=== PATIENT | female | born 1995 | race African-American/Black ===

== ENCOUNTER 2017-10-14 11:50 | Emergency (ER) | payer MEDICAID ==
[~2017-10-14 11:50] MED LIST: PREN0.01 PO
[2017-10-14 11:51] VITALS: BP 144/74; PULSE 88; RESP 14; TEMP 98.6; O2SAT 100
--- NOTE | 2017-10-14 12:15 | PD ---
HPI Chief Complaint: Related Problem Time Seen by Provider: 11:58 Travel History International Travel<30 days: No Contact w/Intl Traveler<30days: No Traveled to known affect area: No History of Present Illness HPI 22-year-old female G1 at 10 weeks presents to emergency room complaining of abdominal cramping since last night. Patient states that her cramping as described as intermittent aching that initially started in the upper abdomen area migrated to the lower pelvic region. Patient does not correlate her pain to food or activity. Pain does not radiate, described as mild and no palliative or provocative factors. Patient states he she has been nauseous since beginning of her but has well-controlled now. Denies vomiting or diarrhea. Denies vaginal discharge or bleeding. Denies dysuria. Denies history of surgeries abdominal or otherwise. States she takes vitamins regularly but no other medications. Patient denies chronic medical issues. Patient has not received an ultrasound from her research librarian. She saw her research librarian last Monday. Patient has unable to tell me the name of her research librarian. PFS Past Medical History Asthma: Yes Developmental Delay: No Diminished Hearing: No Respiratory: Yes (ASTHMA) Immunizations Current: Yes Migraines: Yes ?: Social History Alcohol Use: No Tobacco Use: No Substance Use: No Allergies-Medications (Allergen,Severity, Reaction): Coded Allergies: No Known Allergies (Verified Adverse Reaction, Unknown, 10/10/17) Reported Meds & Prescriptions Reported Meds & Active Scripts Active Plus 27-1 mg ( Vit W/ Ferrous Fumara) 27 Mg Iron-1 Mg Tab 1 Tab PO DAILY Review of Systems Except as stated in HPI: all other systems reviewed are Neg Physical Exam Narrative GENERAL: Well-developed well-nourished in no apparent distress sitting comfortably in bed SKIN: Focused skin assessment warm/dry. HEAD: Atraumatic. Normocephalic. EYES: Pupils equal and round. No scleral icterus. No injection or drainage. ENT: No nasal bleeding or discharge. Mucous membranes pink and moist. NECK: Trachea midline. No JVD. No lymphadenopathy CARDIOVASCULAR: Regular rate and rhythm. No murmur appreciated. RESPIRATORY: No accessory muscle use. Clear to auscultation. Breath sounds equal bilaterally. GASTROINTESTINAL: Abdomen soft, TTP to pelvic region without masses, scars. GENITOURINARY: Normal external genitalia without lesions or erythema. Vaginal vault without blood. White patches present Cervical os was closed without drainage. No cervical motion tenderness. Uterus nontender and nonenlarged. Bilateral adnexa nontender without masses. MUSCULOSKELETAL: No obvious deformities. No clubbing. No cyanosis. No edema. NEUROLOGICAL: Awake and alert. No obvious cranial nerve deficits. Motor grossly within normal limits. Normal speech. PSYCHIATRIC: Appropriate mood and affect; insight and judgment normal. Data Data Last Documented VS Vital Signs Date Time Temp Pulse Resp B/P (MAP) Pulse Ox O2 Delivery O2 Flow Rate FiO2 10/14/17 14:51 10/14/17 12:22 16 10/14/17 11:51 98.6 88 100 Orders Orders Beta Hcg (Quant/Titer) (10/14/17 12:08) Complete Blood Count With Diff (10/14/17 12:08) Comprehensive Metabolic Panel (10/14/17 12:08) Gc And Chlamydia Pcr (10/14/17 12:08) Wet Prep Profile (10/14/17 12:08) Urinalysis - C+S If Indicated (10/14/17 12:08) Iv Access Insert/Monitor (10/14/17 12:08) Ecg Monitoring (10/14/17 12:08) Ed Urine Pregnancytest Poc (10/14/17 12:08) Ed Poc Ultrasound (10/14/17 12:08) Complete Rh (10/14/17 12:39) Ed Discharge Order (10/14/17 14:22) Labs Laboratory Tests Test 10/14/17 12:15 10/14/17 12:30 White Blood Count 11.4 TH/MM3 Red Blood Count 4.57 MIL/MM3 Hemoglobin 12.9 GM/DL Hematocrit 38.3 % Mean Corpuscular Volume 83.9 FL Mean Corpuscular Hemoglobin 28.1 PG Mean Corpuscular Hemoglobin Concent 33.6 % Red Cell Distribution Width 13.6 % Platelet Count 369 TH/MM3 Mean Platelet Volume 8.2 FL Neutrophils (%) (Auto) 69.0 % Lymphocytes (%) (Auto) 22.7 % Monocytes (%) (Auto) 6.8 % Eosinophils (%) (Auto) 1.0 % Basophils (%) (Auto) 0.5 % Neutrophils # (Auto) 7.8 TH/MM3 Lymphocytes # (Auto) 2.6 TH/MM3 Monocytes # (Auto) 0.8 TH/MM3 Eosinophils # (Auto) 0.1 TH/MM3 Basophils # (Auto) 0.1 TH/MM3 CBC Comment DIFF FINAL Differential Comment Urine Color YELLOW Urine Turbidity HAZY Urine pH 8.0 Urine Specific [place] 1.012 Urine Protein NEG mg/dL Urine Glucose (UA) NEG mg/dL Urine Ketones NEG mg/dL Urine Occult Blood NEG Urine Nitrite NEG Urine Bilirubin NEG Urine Urobilinogen LESS THAN 2.0 MG/DL Urine Leukocyte Esterase MOD Urine RBC 1 /hpf Urine WBC 4 /hpf Urine Squamous Epithelial Cells 6 /hpf Urine Amorphous Sediment RARE Urine Mucus FEW /lpf Microscopic Urinalysis Comment CULT NOT INDICATED Blood Urea Nitrogen 3 MG/DL Creatinine 0.49 MG/DL Random Glucose 78 MG/DL Total Protein 8.0 GM/DL Albumin 3.8 GM/DL Calcium Level 9.1 MG/DL Alkaline Phosphatase 63 U/L Aspartate Amino Transf (AST/SGOT) 18 U/L Alanine Aminotransferase (ALT/SGPT) 13 U/L Total Bilirubin 0.6 MG/DL Sodium Level 137 MEQ/L Potassium Level 3.9 MEQ/L Chloride Level 106 MEQ/L Carbon Dioxide Level 24.5 MEQ/L Anion Gap 7 MEQ/L Estimat Glomerular Filtration Rate 195 ML/MIN Human Chorionic Gonadotropin, Quant 09747 MIU/ML Clue Cells (Wet Prep) NONE SEEN Vaginal Trichomonas (Wet Prep) NONE SEEN Vaginal Yeast (Wet Prep) NONE SEEN MDM Medical Decision Making Medical Screen Exam Complete: Yes Emergency Medical Condition: Yes Differential Diagnosis Urethritis, cystitis, urinary tract infection,ectopic , IUP Narrative Course 22-year-old female G1 at 10 weeks presents to emergency room complaining of abdominal cramping since last night. Patient states that her cramping as described as intermittent aching that initially started in the upper abdomen area migrated to the lower pelvic region. Patient does not correlate her pain to food or activity. Pain does not radiate, described as mild and no palliative or provocative factors. Patient states he she has been nauseous since beginning of her but has well-controlled now. Denies vomiting or diarrhea. Denies vaginal discharge or bleeding. Denies dysuria. Denies history of surgeries abdominal or otherwise. States she takes vitamins regularly but no other medications. Patient denies chronic medical issues. Patient has not received an ultrasound from her research librarian. She saw her research librarian last Monday. Patient has unable to tell me the name of her research librarian. Vital signs stable. Physical exam: Vaginal exam demonstrates cervical loss closed without drainage or bleeding. White patches throughout the vaginal loyd. No cervical motion tenderness. [id number] ultrasound performed by Dr. Vasquez. Please see his note as well. After review of EMR, patient seen by Dr. Davis Monday where she had a pelvic exam in multiple levels drawn. Patient does due to have an ultrasound in exam October 19 along with initial checkup. In addition, patient was diagnosed with urinary tract infection August 2017 and prematurely stop this medication after her physician advised her to. Patient denies dysuria or hematuria currently. HCG quant level correlates to gestational age of approximately 8-9 weeks. No evidence of urinary tract infection. Patient likely has pelvic cramping secondary to status, patient has an IUP confirmed on point of care ultrasound today. Pt understands the likely diagnosis and advised to return for increased cramping , vaginal bleeding. Please see Dr. Vasquez's not as well regarding this patient. Diagnosis Primary Impression: Pelvic pain during Referrals: Resource Management Planner Additional Instructions: You may his Tylenol for your pelvic cramping. Ensure you are drinking plenty of fluids, preferably water, along with a nutritious diet. If you develop fever, chills, severe abdominal pain, persistent vomiting or inability to eat return to the emergency department. Your pelvic exam today did not include a Pap smear. Follow up with your research librarian as discussed today. Disposition: 01 DISCHARGE HOME Condition: Stable Mariana Chen Oct 14, 2017 12:15
--- NOTE | 2017-10-14 12:34 | PD ---
Physical Exam Date Seen by Provider: Oct 14, 2017 Time Seen by Provider: 12:32 Narrative The patient is a 22-year-old Josee female who is a who estimates her last menstrual cycle mid July, approximately 10 weeks . The patient was initially seen by the mid-level provider, please refer to the initial history, physical, diagnostic evaluation, treatment modality plan. Data Data Last Documented VS Vital Signs Date Time Temp Pulse Resp B/P (MAP) Pulse Ox O2 Delivery O2 Flow Rate FiO2 10/14/17 12:22 16 10/14/17 11:51 98.6 88 144/74 (97) 100 Orders Orders Beta Hcg (Quant/Titer) (10/14/17 12:08) Complete Blood Count With Diff (10/14/17 12:08) Comprehensive Metabolic Panel (10/14/17 12:08) Gc And Chlamydia Pcr (10/14/17 12:08) Wet Prep Profile (10/14/17 12:08) Urinalysis - C+S If Indicated (10/14/17 12:08) Iv Access Insert/Monitor (10/14/17 12:08) Ecg Monitoring (10/14/17 12:08) Ed Urine Pregnancytest Poc (10/14/17 12:08) Ed Poc Ultrasound (10/14/17 12:08) Complete Rh (10/14/17 12:39) Ed Discharge Order (10/14/17 14:22) Labs Laboratory Tests Test 10/14/17 12:15 10/14/17 12:30 White Blood Count 11.4 TH/MM3 Red Blood Count 4.57 MIL/MM3 Hemoglobin 12.9 GM/DL Hematocrit 38.3 % Mean Corpuscular Volume 83.9 FL Mean Corpuscular Hemoglobin 28.1 PG Mean Corpuscular Hemoglobin Concent 33.6 % Red Cell Distribution Width 13.6 % Platelet Count 369 TH/MM3 Mean Platelet Volume 8.2 FL Neutrophils (%) (Auto) 69.0 % Lymphocytes (%) (Auto) 22.7 % Monocytes (%) (Auto) 6.8 % Eosinophils (%) (Auto) 1.0 % Basophils (%) (Auto) 0.5 % Neutrophils # (Auto) 7.8 TH/MM3 Lymphocytes # (Auto) 2.6 TH/MM3 Monocytes # (Auto) 0.8 TH/MM3 Eosinophils # (Auto) 0.1 TH/MM3 Basophils # (Auto) 0.1 TH/MM3 CBC Comment DIFF FINAL Differential Comment Urine Color YELLOW Urine Turbidity HAZY Urine pH 8.0 Urine Specific [place] 1.012 Urine Protein NEG mg/dL Urine Glucose (UA) NEG mg/dL Urine Ketones NEG mg/dL Urine Occult Blood NEG Urine Nitrite NEG Urine Bilirubin NEG Urine Urobilinogen LESS THAN 2.0 MG/DL Urine Leukocyte Esterase MOD Urine RBC 1 /hpf Urine WBC 4 /hpf Urine Squamous Epithelial Cells 6 /hpf Urine Amorphous Sediment RARE Urine Mucus FEW /lpf Microscopic Urinalysis Comment CULT NOT INDICATED Blood Urea Nitrogen 3 MG/DL Creatinine 0.49 MG/DL Random Glucose 78 MG/DL Total Protein 8.0 GM/DL Albumin 3.8 GM/DL Calcium Level 9.1 MG/DL Alkaline Phosphatase 63 U/L Aspartate Amino Transf (AST/SGOT) 18 U/L Alanine Aminotransferase (ALT/SGPT) 13 U/L Total Bilirubin 0.6 MG/DL Sodium Level 137 MEQ/L Potassium Level 3.9 MEQ/L Chloride Level 106 MEQ/L Carbon Dioxide Level 24.5 MEQ/L Anion Gap 7 MEQ/L Estimat Glomerular Filtration Rate 195 ML/MIN Human Chorionic Gonadotropin, Quant 66807 MIU/ML Clue Cells (Wet Prep) NONE SEEN Vaginal Trichomonas (Wet Prep) NONE SEEN Vaginal Yeast (Wet Prep) NONE SEEN MDM Medical Record Reviewed: Yes Supervised Visit with LAURE: Yes Interpretation(s) Laboratory Tests Test 10/14/17 12:15 10/14/17 12:30 White Blood Count 11.4 TH/MM3 Red Blood Count 4.57 MIL/MM3 Hemoglobin 12.9 GM/DL Hematocrit 38.3 % Mean Corpuscular Volume 83.9 FL Mean Corpuscular Hemoglobin 28.1 PG Mean Corpuscular Hemoglobin Concent 33.6 % Red Cell Distribution Width 13.6 % Platelet Count 369 TH/MM3 Mean Platelet Volume 8.2 FL Neutrophils (%) (Auto) 69.0 % Lymphocytes (%) (Auto) 22.7 % Monocytes (%) (Auto) 6.8 % Eosinophils (%) (Auto) 1.0 % Basophils (%) (Auto) 0.5 % Neutrophils # (Auto) 7.8 TH/MM3 Lymphocytes # (Auto) 2.6 TH/MM3 Monocytes # (Auto) 0.8 TH/MM3 Eosinophils # (Auto) 0.1 TH/MM3 Basophils # (Auto) 0.1 TH/MM3 CBC Comment DIFF FINAL Differential Comment Urine Color YELLOW Urine Turbidity HAZY Urine pH 8.0 Urine Specific [place] 1.012 Urine Protein NEG mg/dL Urine Glucose (UA) NEG mg/dL Urine Ketones NEG mg/dL Urine Occult Blood NEG Urine Nitrite NEG Urine Bilirubin NEG Urine Urobilinogen LESS THAN 2.0 MG/DL Urine Leukocyte Esterase MOD Urine RBC 1 /hpf Urine WBC 4 /hpf Urine Squamous Epithelial Cells 6 /hpf Urine Amorphous Sediment RARE Urine Mucus FEW /lpf Microscopic Urinalysis Comment CULT NOT INDICATED Blood Urea Nitrogen 3 MG/DL Creatinine 0.49 MG/DL Random Glucose 78 MG/DL Total Protein 8.0 GM/DL Albumin 3.8 GM/DL Calcium Level 9.1 MG/DL Alkaline Phosphatase 63 U/L Aspartate Amino Transf (AST/SGOT) 18 U/L Alanine Aminotransferase (ALT/SGPT) 13 U/L Total Bilirubin 0.6 MG/DL Sodium Level 137 MEQ/L Potassium Level 3.9 MEQ/L Chloride Level 106 MEQ/L Carbon Dioxide Level 24.5 MEQ/L Anion Gap 7 MEQ/L Estimat Glomerular Filtration Rate 195 ML/MIN Human Chorionic Gonadotropin, Quant 04524 MIU/ML Clue Cells (Wet Prep) NONE SEEN Vaginal Trichomonas (Wet Prep) NONE SEEN Vaginal Yeast (Wet Prep) NONE SEEN Differential Diagnosis Differential diagnosis includes normal , ectopic , threatened AB, hyperemesis gravidarum, GERD, UTI, dehydration. Narrative Course I, Dr. Vasquez, have reviewed the advance practice practitioner's documentation and am in agreement, met with the patient face to face, made the diagnosis, and the medical decision making was done by me. *My assessment and Findings: The patient is a 22-year-old after [place] female was initially evaluated by the mid-level provider, please refer to the initial history, physical, diagnostic evaluation, and treatment modality plan. Patient is who estimates her last menstrual cycle mid-July, thinks she is approximately 10 weeks . She has a follow-up appointment for official ultrasound on September 29, 2017 at [facility]. The patient states she had mild epigastric discomfort that radiated down low to the pelvis with cramping. She denies any vaginal bleeding, dysuria, discharge, vomiting, diarrhea, or fever. A bedside ultrasound was performed, revealing an IUP with positive heart tones. The patient was shown the ultrasound as it was performed at bedside. Wet prep negative. UA negative. Rh status positive, no indication for RhoGAM. Patient is stable for outpatient follow-up with her collections rep. Procedures Procedure Narrative A bedside ultrasound was performed using a curvilinear probe. The patient had an IUP with positive heart tones, the patient tolerated the procedure without difficulty and there was no obvious complications. Diagnosis Primary Impression: Qualified Codes: Z34.90 - Encounter for supervision of normal , unspecified, unspecified trimester Patient Instructions: General Instructions Additional Instruction: Please provide the patient copy of her labs at discharge. Follow-up with her primary physician. Continue taking a vitamin daily. Return if symptoms worsen or progress. Disposition: 01 DISCHARGE HOME Condition: Stable Antelmo Vasquez MD Oct 14, 2017 12:34
[2017-10-14 12:35] LABS: AUTOMATED NEUTROPHIL # 7.8 TH/MM3 (1.8-7.7); BASOPHIL # 0.1 TH/MM3 (0-0.2); BASOPHIL % 0.5 % (0.0-2.0); EOSINOPHIL # 0.1 TH/MM3 (0-0.4); HEMATOCRIT 38.3 % (35.0-46.0); HEMOGLOBIN 12.9 GM/DL (11.6-15.3); LYMPH % 22.7 % (9.0-44.0); LYMPHOCYTE # 2.6 TH/MM3 (1.0-4.8); MEAN CELL VOLUME 83.9 FL (80.0-100.0); MEAN CORPUSCULAR HEMOGLOBIN 28.1 PG (27.0-34.0); MEAN CORPUSCULAR HGB CONC 33.6 % (32.0-36.0); MEAN PLATELET VOLUME 8.2 FL (7.0-11.0); MONO % 6.8 % (0.0-8.0); MONOCYTE # 0.8 TH/MM3 (0-0.9); PLATELET COUNT 369 TH/MM3 (150-450); RED BLOOD COUNT 4.57 MIL/MM3 (4.00-5.30); RED CELL DISTRIBUTION WIDTH 13.6 % (11.6-17.2); WHITE BLOOD COUNT 11.4 TH/MM3 (4.0-11.0)
[2017-10-14 12:47] LABS: AMORPHOUS SEDIMENT, URINE RARE; BILIRUBIN, URINE NEG (NEG); BLOOD, URINE NEG (NEG); GLUCOSE,URINE NEG (NEG); KETONE, URINE NEG (NEG); MUCUS URINE FEW /lpf (OCC); NITRITE,URINE NEG (NEG); SQUAMOUS EPITHELIAL CELL URINE 6 /hpf (0-5); URINE COLOR YELLOW (YELLW/STRAW); URINE LEUKOCYTE ESTERASE MOD (NEG)
[2017-10-14 13:21] LABS: ALKALINE PHOSPHATASE 63 U/L (45-117); ALT (GPT) 13 U/L (9-42); TOTAL BILIRUBIN ADULT 0.6 MG/DL (0.2-1.0)
[2017-10-14 13:37] LABS: ALBUMIN 3.8 GM/DL (3.4-5.0); AST (GOT) 18 U/L (16-38); BICARBONATE 24.5 MEQ/L (21.0-32.0); BLOOD UREA NITROGEN 3 MG/DL (7-18); CALCIUM 9.1 MG/DL (8.5-10.1); CHLORIDE 106 MEQ/L (98-107); CREATININE 0.49 MG/DL (0.50-1.00); GLOMERULAR FILTRATION RATE 195 ML/MIN (>89); GLUCOSE,RANDOM 78 MG/DL (74-106); SODIUM (NA) 137 MEQ/L (136-145)
== END 2017-10-14 14:52 | disposition home or self-care (01) ==
LOC: NEPC 11:50
DX: O26.891 Other specified pregnancy related conditions, first trimester (principal); R10.2 Pelvic and perineal pain; O99.511 Diseases of the respiratory system complicating pregnancy, first trimester; J45.909 Unspecified asthma, uncomplicated; Z3A.10 10 weeks gestation of pregnancy
CPT/HCPCS: 80053; 81001; 84702; 84703; 85025; 86901; 87210; 87491; 87591; 99283

== ENCOUNTER → 2017-10-19 | Outpatient (CLI) | payer MEDICAID | LOC: HPND 08:59 | PROVIDERS: ATTEND Family Medicine | DX: O26.841 Uterine size-date discrepancy, first trimester (principal) | CPT/HCPCS: 76801 ==

== ENCOUNTER → 2017-11-28 | Outpatient (CLI) | payer MEDICAID | LOC: HPND 09:23 | PROVIDERS: ATTEND Family Medicine | DX: Z36.3 Encounter for antenatal screening for malformations (principal) | CPT/HCPCS: 76805 ==

== ENCOUNTER → 2017-12-26 | Outpatient (CLI) | payer MEDICAID | LOC: HPND 10:07 | PROVIDERS: ATTEND Family Medicine | DX: Z36.2 Encounter for other antenatal screening follow-up (principal) | CPT/HCPCS: 76816 ==

== ENCOUNTER 2018-01-16 07:21 | Emergency (ER) | payer MEDICAID ==
--- NOTE | 2018-01-16 08:07 | PD ---
HPI Chief Complaint Abdominal pain Date Seen: Jan 16, 2018 Time Seen: 08:00 Travel History International Travel<30 Days: No Contact w/Intl Traveler<30Days: No Known Affected Area: No History of Present Illness HPI The patient is a very pleasant 22 year old at 25/5 weeks gestation who presents to OB triage for evaluation of left lateral abdominal wall pain. She states last night she started to have stabbing pain of this area around 22:00. She endorses decreased movement at that time as well. She was able to fall asleep however states she woke up around 03:00 this morning with the same stabbing pain. She reports her pain currently is at a 9/10. She now reports normal movements. Denies contractions. Denies vaginal bleeding, discharge , or leakage of fluid. She denies dysuria or hematuria, recent sexual intercourse, fevers or chills. Para: 0 : 1 History Past Medical History Narrative Medical - Asthma, mild, never hospitalized - Denies having sickle cell trait or disease Obstetric History Obstetric History - - First day of LMP: 08/14/2017 - Confirms no previous elective or spontaneous abortions, no ectopic pregnancies - No history of gonorrhea, chlamydia, or PID - Reports 2 previous UTIs lifetime, most recently in 08/2017 for which she completed a course of Macrobid Past Surgical History Narrative Surgical - Minor skin procedure due to chickenpox when the patient was 12 years old Family History Narrative Family History - Mother: healthy - Father: healthy Social History Narrative Social History - Tobacco: admits to smoking cigarettes in the past less than 1/2 PPD, states she quit after finding out she was - Etoh: never - Illicit drug use: admits to marijuana use in the past, not daily, quit after finding out she was Allergies-Medications (Allergen,Severity, Reaction): Coded Allergies: No Known Allergies (Verified Adverse Reaction, Unknown, 10/10/17) Home Meds Active Scripts Vit W/ Ferrous Fumara ( Plus 27-1 mg) 27 Mg Iron-1 Mg Tab, 1 TAB PO DAILY, #90 TAB 6 Refills Prov:Presley Davis MD R2 10/04/17 Review of Systems General / Constitutional: No: Fever, Chills Eyes: No: Diploplia, Blurred Vision Cardiovascular: No: Chest Pain or Discomfort, Palpitations Respiratory: No: Cough, Short of Breath Gastrointestinal: Nausea, Abdominal Pain Genitourinary: No: Urgency, Dysuria, Hematuria Skin: No Rash Physical Exam Narrative GENERAL: Well-nourished, well-developed patient. SKIN: Warm and dry. HEAD: Normocephalic and atraumatic. EYES: No scleral icterus. No injection or drainage. ENT: No nasal drainage noted. Mucous membranes pink. Airway patent. NECK: Supple, trachea midline. No JVD. CARDIOVASCULAR: Regular rate and rhythm without murmurs, gallops, or rubs. RESPIRATORY: Breath sounds equal bilaterally. No accessory muscle use. ABDOMEN/GI: Abdomen soft, mild to moderate tenderness of the lateral left abdominal wall, no tenderness in abdominal quadrants, bowel sounds present, no rebound, no guarding Gravid to 25 weeks size Uterine Contractions: none on tocometer FHT's: Baseline: 140s bpm Variability: moderate Decels: none EXTREMITIES: No cyanosis or edema. BACK: Nontender without obvious deformity. No CVA tenderness. NEUROLOGICAL: Awake and alert. Motor and sensory grossly within normal limits. Normal speech. Data Data Vital Signs Reviewed: Yes [facility] Medical Record Reviewed: Yes Plan 22 year old at 25/5 weeks gestation presents to OB triage for evaluation of left lateral abdominal wall pain. 1. IUP - FHT reviewed, FHR of 140s bpm with moderate variability, no decelerations noted - No contractions on tocometer - Per patient no VB or LOF, no contractions, +FM 2. Abdominal pain - Abdomen exam benign at this time - Pain most likely due to discomfort in , vs round ligament pain, vs msk strain - Will treat with tylenol 650 mg po x1 - Pain improving after patient given PO tylenol - Encouraged good hydration and continued ambulation - Rec continued PO tylenol prn pain - Urine dip reviewed, 15 ketones, trace blood, trace protein, negative for nitrite and LE - Will send urine for UA and culture if indicated and f/u with patient as an outpatient if any abnormalities Dispo: Patient stable for discharge from OB ED. Will follow up at [facility] for routine care dw Dr. Moy Diagnosis Diagnosis: Primary Impression: Abdominal pain affecting Additional Impression: Disposition: DISCHARGE HOME Condition: Stable Presley Davis MD R2 Jan 16, 2018 08:07
[2018-01-16] MEDS ORDERED: ACETAMINOPHEN 325 MG TAB PO ONE (08:30)
[2018-01-16 10:32] LABS: BILIRUBIN, URINE NEG (NEG); BLOOD, URINE NEG (NEG); CALCIUM OXALATE CRYSTALS,URINE MANY /hpf; GLUCOSE,URINE NEG (NEG); KETONE, URINE 10 mg/dL (NEG); MUCUS URINE FEW /lpf (OCC); NITRITE,URINE NEG (NEG); PH, URINE 6.5 (5.0-8.5); SQUAMOUS EPITHELIAL CELL URINE 1 /hpf (0-5); TRANSITIONAL EPI CELLS, URINE <1 /hpf; URINE COLOR LIGHT-YELLOW (YELLW/STRAW); URINE LEUKOCYTE ESTERASE NEG (NEG)
== END 2018-01-16 09:56 | disposition home or self-care (01) ==
LOC: HOBED 07:21
DX: O26.892 Other specified pregnancy related conditions, second trimester (principal); R10.9 Unspecified abdominal pain; Z3A.25 25 weeks gestation of pregnancy
CPT/HCPCS: 81001; 99283

== ENCOUNTER 2018-01-24 20:38 | Emergency (ER) | payer MEDICAID ==
--- NOTE | 2018-01-24 22:28 | PD ---
HPI Chief Complaint abdominal pain Date Seen: January 24, 2018 Time Seen: 22:00 Travel History International Travel<30 Days: No Contact w/Intl Traveler<30Days: No Known Affected Area: No History of Present Illness HPI Ms. Petty is a 22-year-old 2606 weeks gestation presenting with abdominal pain. She states that she was outside when she was hit with a football in the abdomen. She admittedly felt severe pain. She describes his abdominal pain as a 9/10 dull aching pain located in her left upper quadrant of her abdomen and nonradiating, nothing makes it better, breathing and coughing makes the pain worse. She has not tried any pain medications. No vaginal bleeding, no contractions, no leakage of fluids, she states that she has not felt the baby move since she got hit in the abdomen. 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[employer], aspiring RN Denies alcohol or tobacco use Quit smoking marijuana before she knew she was Alcohol Use: No Tobacco Use: No Substance Abuse: No Allergies-Medications (Allergen,Severity, Reaction): Coded Allergies: No Known Allergies (Verified Adverse Reaction, Unknown, 10/10/17) Home Meds Active Scripts Vit W/ Ferrous Fumara ( Plus 27-1 mg) 27 Mg Iron-1 Mg Tab, 1 TAB PO DAILY, #90 TAB 6 Refills Prov:Presley Davis MD R2 10/04/17 Review of Systems General / Constitutional: No: Fever, Chills Eyes: No: Blurred Vision HENT: Headaches Cardiovascular: No: Chest Pain or Discomfort Respiratory: No: Short of Breath Gastrointestinal: No: Nausea, Vomiting Genitourinary: No: Dysuria Skin: No Rash Neurologic: No: Weakness Physical Exam Narrative GENERAL: Well-nourished, well-developed patient. SKIN: Warm and dry. HEAD: Normocephalic and atraumatic. EYES: No scleral icterus. No injection or drainage. ENT: No nasal drainage noted. Mucous membranes pink. Airway patent. NECK: Supple, trachea midline. No JVD. CARDIOVASCULAR: Regular rate and rhythm without murmurs, gallops, or rubs. RESPIRATORY: Breath sounds equal bilaterally. No accessory muscle use. BREASTS: Bilateral exam showed no masses , no retractions, no nipple discharge. ABDOMEN/GI: Abdomen soft, non-tender, bowel sounds present, no rebound, no guarding Gravid to 26 weeks size FHT's: Category: 1 Baseline:130s Reactive: yes Variability: moderate Decels: none EXTREMITIES: No cyanosis or edema. BACK: Nontender without obvious deformity. No CVA tenderness. NEUROLOGICAL: Awake and alert. Motor and sensory grossly within normal limits. Five out of 5 muscle strength in all muscle groups. Normal speech. Data Data Vital Signs Reviewed: Yes Orders Orders Vital Signs (Adult) .ON ADMISSION (01/24/18 22:12) ^ Labor Status (01/24/18 22:12) Heart (01/24/18 22:12) ^ Non Stress Test (01/24/18 22:12) ^ Hydration (01/24/18 22:12) Us Ob Bpp Wo Nst (01/24/18 22:12) MDM Plan 22-year-old at 26/6 weeks gestation presented with abdominal pain after trauma to the abdomen. FHT shows category 1 tracing, continue to monitor for any signs of distress Order BPP and assessment of placenta to rule out placental abruption -05/02 Discharge home, patient follow-up with OB provider, Dr. Davis Diagnosis Diagnosis: Primary Impression: 26 weeks gestation of Disposition: DISCHARGE HOME Condition: Stable Tavia Adler MD R1 January 24, 2018 22:28
[2018-01-24] MEDS ORDERED: ACETAMINOPHEN 325 MG TAB PO PRN (22:45)
== END 2018-01-25 00:05 | disposition home or self-care (01) ==
LOC: HOBED 20:38
DX: O9A.212 Injury, poisoning and certain other consequences of external causes complicating pregnancy, second trimester (principal); S39.91XA Unspecified injury of abdomen, initial encounter; Z3A.26 26 weeks gestation of pregnancy; W21.01XA Struck by football, initial encounter
CPT/HCPCS: 76819; 99284

== ENCOUNTER 2018-04-25 06:59 | Inpatient (IN) ==
[2018-04-25] MEDS ORDERED: Sodium Chlor 0.9% Inj 500 ML IV.SIG PRN (07:46)
[2018-04-25] MEDS ORDERED: Oxytocin 30 Units/500ml Premix 30 UNITS/500 ML BAG IV.SIG ONE (07:46)
[2018-04-25] MEDS ORDERED: Sod Chloride 0.9% Inj 1,000 ML IV.CONT PRN (07:46)
[2018-04-25] MEDS ORDERED: Naloxone Inj 0.4 MG/ML Vial IV.PUSH PRN (07:46)
--- NOTE | 2018-04-25 07:46 | ED ---
History of Present Illness Primary Care Physician: UNKNOWN Chief Complaint: SROM History of Present Illness: 22-year-old G1 at 39/6 presenting to the OB ED with gush of fluid. Patient states that at 6 AM this morning she had a large gush of clear fluid that had no abnormal odor. Denies any vaginal bleeding or decreased movement. She has had episodic low back pain every 2-4 minutes since she ruptured. Otherwise denies any fever, chills, dysuria, chest pain or shortness of breath. She is GBS negative and this is been an uncomplicated . - Inpatient Certification I certify that the inpatient services were ordered in accordance with Medicare regulations governing the order. This includes certification that hospital inpatient services are reasonable and necessary and in the case of services not specified as inpatient-only under 42 CFR 419.22(n), that they are appropriately provided as inpatient services in accordance to with the 2-midnight benchmark under 43 CFR 412.3(e) Review of Systems All other systems reviewed negative except as stated in HPI PMFSH - Medical History Medical History: Medical History (Last Updated 04/25/18 @ 07:52 by Gerson San MD, R2) Asthma - Surgical History Surgical History: Surgical History (Last Updated 04/25/18 @ 07:52 by Gerson San MD, R2) History of incision and drainage - Tobacco History Smoking Status: Never smoker - Alcohol History How Often Do You Have a Drink Containing Alcohol: Never - Substance Use History Substance History: No History of Abuse Medications and Allergies Allergies Allergy/AdvReac Type Severity Reaction Status Date / Time No Known Allergies Allergy Verified 04/15/18 17:04 Home Medications Medication Instructions Recorded Confirmed Type vit,[id number] 1 tab PO DAILY 04/15/18 04/15/18 History [PNV 29-1] Exam Vital signs: Vital Signs 04/25/18 07:25 04/25/18 07:26 Temperature 97.9 F Pulse Rate 80 Respiratory Rate 18 Blood Pressure 126/84 Intake & Output 04/24/18 04/25/18 04/25/18 18:59 06:59 18:59 Weight 228 kg Narrative: GENERAL: Well-nourished, well-developed patient. SKIN: Warm and dry. HEAD: Normocephalic and atraumatic. EYES: No scleral icterus. No injection or drainage. ENT: No nasal drainage noted. Mucous membranes pink. Airway patent. NECK: Supple, trachea midline. No JVD. CARDIOVASCULAR: Regular rate and rhythm without murmurs, gallops, or rubs. RESPIRATORY: Breath sounds equal bilaterally. No accessory muscle use. ABDOMEN/GI: Abdomen soft, non-tender, bowel sounds present, no rebound, no guarding Gravid to 39 weeks size GENITOURINARY: External Genitalia: intact and normal in appearance Cervix: Posterior Dilatation: 1-2 Effacement: 60 Station: -4 Presentation: Undetectable Membranes: Ruptured Uterine Contractions: Every 2-4 minutes FHT's: Category: 1 Baseline: 130 Reactive: y Variability: Moderate Decels: Absent EXTREMITIES: No cyanosis or edema. BACK: Nontender without obvious deformity. No CVA tenderness. NEUROLOGICAL: Awake and alert. Motor and sensory grossly within normal limits. Five out of 5 muscle strength in all muscle groups. Normal speech. Assessment and Plan - Diagnosis (1) SROM (spontaneous rupture of membranes) Status: Acute Plan: 22-year-old G1 at 39/6 presenting to the OB ED with gush of clear fluid. Amnisure positive on admission. Found to be 1-2/60/-4 -GBS negative -Category 1 tracing -Bedside ultrasound confirms cephalic presentation -Patient continues to have significant leakage of fluid, will augment with Pitocin -Otherwise routine labor and delivery orders Discharge Plan - Discharge Disposition Patient Disposition: 30 Still Patient - Physicians Team ED Provider: Keyona Moy Primary Care Provider: UNKNOWN,
[2018-04-25] MEDS ORDERED: Oxytocin 30 Units/500ml Premix 30 UNITS/500 ML BAG IV.SIG PRN (07:50)
--- NOTE | 2018-04-25 07:57 | P.HPOB ---
22-year-old G1 at 39/6 presenting to the OB ED with gush of fluid. Patient states that at 6 AM this morning she had a large gush of clear fluid that had no abnormal odor. Denies any vaginal bleeding or decreased movement. She has had episodic low back pain every 2-4 minutes since she ruptured. Otherwise denies any fever, chills, dysuria, chest pain or shortness of breath. She is GBS negative and this is been an uncomplicated . - Inpatient Certification I certify that the inpatient services were ordered in accordance with Medicare regulations governing the order. This includes certification that hospital inpatient services are reasonable and necessary and in the case of services not specified as inpatient-only under 42 CFR 419.22(n), that they are appropriately provided as inpatient services in accordance to with the 2-midnight benchmark under 43 CFR 412.3(e) Review of Systems All other systems reviewed negative except as stated [facility] - Medical History Medical History: Medical History (Last Updated 04/25/18 @ 07:52 by Gerson San MD, R2) Asthma - Surgical History Surgical History: Surgical History (Last Updated 04/25/18 @ 07:52 by Gerson San MD, R2) History of incision and drainage - Tobacco History Smoking Status: Never smoker - Alcohol History How Often Do You Have a Drink Containing Alcohol: Never - Substance Use History Substance History: No History of Abuse Medications and Allergies Allergies Allergy/AdvReac Type Severity Reaction Status Date / Time No Known Allergies Allergy Verified 04/15/18 17:04 Home Medications Medication Instructions Recorded Confirmed Type vit,[id number] 1 tab PO DAILY 04/15/18 04/15/18 History [PNV 29-1] Exam Vital signs: Vital Signs 04/25/18 07:25 04/25/18 07:26 Temperature 97.9 F Pulse Rate 80 Respiratory Rate 18 Blood Pressure 126/84 Intake & Output 04/24/18 04/25/18 04/25/18 18:59 06:59 18:59 Weight 228 kg Narrative: GENERAL: Well-nourished, well-developed patient. SKIN: Warm and dry. HEAD: Normocephalic and atraumatic. EYES: No scleral icterus. No injection or drainage. ENT: No nasal drainage noted. Mucous membranes pink. Airway patent. NECK: Supple, trachea midline. No JVD. CARDIOVASCULAR: Regular rate and rhythm without murmurs, gallops, or rubs. RESPIRATORY: Breath sounds equal bilaterally. No accessory muscle use. ABDOMEN/GI: Abdomen soft, non-tender, bowel sounds present, no rebound, no guarding Gravid to 39 weeks size GENITOURINARY: External Genitalia: intact and normal in appearance Cervix: Posterior Dilatation: 1-2 Effacement: 60 Station: -4 Presentation: Undetectable Membranes: Ruptured Uterine Contractions: Every 2-4 minutes FHT's: Category: 1 Baseline: 130 Reactive: y Variability: Moderate Decels: Absent EXTREMITIES: No cyanosis or edema. BACK: Nontender without obvious deformity. No CVA tenderness. NEUROLOGICAL: Awake and alert. Motor and sensory grossly within normal limits. Five out of 5 muscle strength in all muscle groups. Normal speech. Assessment and Plan - Diagnosis (1) SROM (spontaneous rupture of membranes) Status: Acute Plan: 22-year-old G1 at 39/6 presenting to the OB ED with gush of clear fluid. Amnisure positive on admission. Found to be 1-2/60/-4 -GBS negative -Category 1 tracing -Bedside ultrasound confirms cephalic presentation -Patient continues to have significant leakage of fluid, will augment with Pitocin -Otherwise routine labor and delivery orders
[2018-04-25] MEDS ORDERED: Citric Acid/Sodium Citrate Liq 30 ML UDC PO SCH (08:00)
[2018-04-25 08:03] LABS: Baso # (Auto) 0.1 th/mm3 (0.0-0.2); Baso % (Auto) 0.6 % (0.0-2.0); Eos # (Auto) 0.1 th/mm3 (0.0-0.4); Eos % (Auto) 1.1 % (0.0-4.0); Hemoglobin 11.7 gm/dL (11.6-15.3); Lymph # (Auto) 2.8 th/mm3 (1.0-4.8); Lymph % (Auto) 22.1 % (9.0-44.0); Mean Corpuscular HGB Conc 35.4 % (32.0-36.0); Mean Corpuscular Hemoglobin 28.8 pg (27.0-34.0); Mean Corpuscular Volume 81.3 fL (80.0-100.0); Mean Platelet Volume 8.1 fL (7.0-11.0); Mono % (Auto) 7.7 % (0.0-8.0); Neut # (Auto) 8.7 th/mm3 (1.8-7.7); Neut % (Auto) 68.5 % (16.0-70.0); Platelet Count 359 th/mm3 (150-450); Red Blood Count 4.06 mil/mm3 (4.00-5.30); Red Cell Distribution Width 14.3 % (11.6-17.2); White Blood Count 12.7 th/mm3 (4.0-11.0)
[2018-04-25] MEDS: fentaNYL Citrate Inj 100 MCG/2 ML Ampul IV.PUSH PRN ×5 (09:07→13:08)
[2018-04-25 10:42] LABS: Bacteria,Urine Occasional /hpf; Bilirubin,Urine Negative (Negative); Clarity,Urine Hazy (Clear); Color,Urine Yellow (Yellw/Straw); Glucose,Urine (UA) Negative (Negative); Leukocyte Esterase,Urine Moderate (Negative); Mucus,Urine Few /lpf (Occasional); Nitrite,Urine Negative (Negative); Specific Gravity,Urine 1.009 (1.002-1.035); Squamous Epithelial Cell,Urine 4 /hpf (0-5)
--- NOTE | 2018-04-25 12:07 | P.OBLABOR ---
Subjective Interval history: Patient reported lower pelvic pressure, currently on birthing ball. Otherwise without specific complaints. States she desires an epidural when appropriate. Objective Vital Signs: Vital Signs - 8 hr 04/25/18 07:25 04/25/18 07:26 04/25/18 08:16 Temperature 97.9 F Pulse Rate 80 80 Respiratory Rate 18 Blood Pressure 126/84 129/78 04/25/18 08:31 04/25/18 09:05 04/25/18 09:32 Temperature Pulse Rate 83 72 72 Respiratory Rate 20 Blood Pressure 120/77 117/77 129/77 04/25/18 10:01 04/25/18 10:59 04/25/18 11:02 Temperature 98.0 F Pulse Rate 80 86 Respiratory Rate 20 Blood Pressure 146/83 H 144/83 H Objective: Pelvic Exam (done prior at 11:30): Cervix: [midposition] Dilatation: [2] Effacement: [70] Station: [-3] Presentation: [-] Membranes: ruptured Uterine Contractions: q2-3 minutes on tocometer FHT's: Category: I Baseline: 130s Reactive: +accels Variability: mod Decels: none Assessment and Plan - Diagnosis (1) SROM (spontaneous rupture of membranes) Code(s): J45.909 - Unspecified asthma, uncomplicated Status: Acute Plan: Very pleasant 22-year-old G1 at 39/6 presented with gush of clear fluid earlier today. Amnisure positive on admission. -Cervix 2/70/-3 -Category 1 tracing -Bedside ultrasound confirmed cephalic presentation -Continue augmentation of labor with Pitocin per protocol -GBS negative -Patient desiring epidural -Continue expectant management wdw OB Hospitalist - Attending Attestation Patient doing well, reassuring heart tracing. Continue current management , monitoring. SMS
[2018-04-25] MEDS ORDERED: fentaNYL 2MCG-Bupiv 0.125% Epi 150 ML EPIDURAL ONE (14:08)
--- NOTE | 2018-04-25 14:51 | P.PN ---
Subjective Interval history: [facility] Attending The patient was seen and counseled regarding labor and the goal of a healthy and healthy mother. We discussed the goal of a vaginal delivery. We discussed the risks and medical indications of a delivery. We discussed indications that can include intolerance of labor, emergent indications, and labor abnormalities. We discussed the risks of which include but are not limited to pain, infection, bleeding, injury to bladder/ bowels/nerves/vessels or baby, need for a repeat operation, need for a blood transfusion, need for a hysterectomy, wound infection or breakdown, and other possible complications. All the patient's questions were answered. Will continue oxytocin and consider epidural if patient unable to be comfortable with IV medication until enters labor. The patient is in agreement with if clinically indicated. FHR reassuring. Physical Exam Vital signs: Vital Signs 04/25/18 07:25 04/25/18 07:26 04/25/18 08:16 Temperature 97.9 F Pulse Rate 80 80 Respiratory Rate 18 Blood Pressure 126/84 129/78 04/25/18 08:31 04/25/18 09:05 04/25/18 09:32 Temperature Pulse Rate 83 72 72 Respiratory Rate 20 Blood Pressure 120/77 117/77 129/77 04/25/18 10:01 04/25/18 10:59 04/25/18 11:02 Temperature 98.0 F Pulse Rate 80 86 Respiratory Rate 20 Blood Pressure 146/83 H 144/83 H 04/25/18 12:00 04/25/18 12:01 04/25/18 12:35 Temperature Pulse Rate 88 88 121 H Respiratory Rate 20 Blood Pressure 141/89 H 141/89 H 186/131 H 04/25/18 13:00 04/25/18 13:01 04/25/18 13:32 Temperature 98.2 F Pulse Rate 85 85 94 H Respiratory Rate 18 Blood Pressure 127/78 127/78 169/74 H 04/25/18 14:00 04/25/18 14:30 04/25/18 14:41 Temperature 97.7 F Pulse Rate 88 109 H Respiratory Rate 20 Blood Pressure 100/56 L 137/68 Intake & Output 04/24/18 04/25/18 04/25/18 18:59 06:59 18:59 Intake Total 1999 Balance 1999 Weight 228 kg Intake: IV 1999 LR 1000 mL Inj 1,000 ML @ 125 2000 / 2000 mls/hr IV.CONT .Q8H [facility] Rx#: [id number] Results - Labs CBC & Chem 7: 04/25/18 07:43 Laboratory Results - last 24 hr 04/25/18 04/25/18 04/25/18 07:43 07:43 09:00 WBC 12.7 H RBC 4.06 Hgb 11.7 Hct 33.0 L MCV 81.3 MCH 28.8 MCHC 35.4 RDW 14.3 Plt Count 359 MPV 8.1 Neut % (Auto) 68.5 Lymph % (Auto) 22.1 [place] % (Auto) 7.7 Eos % (Auto) 1.1 Baso % (Auto) 0.6 Neut # (Auto) 8.7 H Lymph # (Auto) 2.8 [place] # (Auto) 1.0 H Eos # (Auto) 0.1 Baso # (Auto) 0.1 WBC Differential . Differential Comment Auto diff final Urine Color Yellow Urine Clarity Hazy H Urine pH 7.0 Ur Specific [place] 1.009 Urine Protein Negative Urine Glucose (UA) Negative Urine Ketones Negative Urine Occult Blood Small H Urine Nitrate Negative Urine Bilirubin Negative Urine Urobilinogen Less than 2 Ur Leukocyte Esterase Moderate H Urine RBC 2 Urine WBC 7 H Ur Squamous Epith Cells 4 Urine Bacteria Occasional H Urine Mucus Few H Micro UA Comment Culture not ind Urine Culture Comments Culture not ind Blood Type B Positive
[2018-04-25] MEDS ORDERED: fentaNYL 2MCG-Bupiv 0.125% Epi 150 ML EPIDURAL PRN (16:39)
[2018-04-25] MEDS ORDERED: fentaNYL Citrate Inj 100 MCG/2 ML Ampul EPIDURAL ONE (16:39)
[2018-04-25 20:02] LABS: Amphetamine Urine With Conf Neg (Neg); Benzodiazepine Urine With Conf Neg (Neg)
[2018-04-25] MEDS ORDERED: Lidocaine PF 1.5% Inj 20 ML Ampule ONE (20:49)
--- NOTE | 2018-04-25 23:29 | P.OBLABOR ---
Subjective Interval history: Patient lying in bed. Continues to report lower pelvic pressure. Otherwise denies complaints. Denies fevers or chills. Objective Vital Signs: Vital Signs - 8 hr 04/25/18 15:25 04/25/18 15:40 04/25/18 15:55 Temperature Pulse Rate 105 H 93 H 87 Respiratory Rate Blood Pressure 114/57 L 111/73 127/77 04/25/18 16:00 04/25/18 16:05 04/25/18 16:10 Temperature 98.1 F Pulse Rate 91 H 86 Respiratory Rate 16 Blood Pressure 122/74 04/25/18 16:25 04/25/18 16:52 04/25/18 17:01 Temperature 98.4 F Pulse Rate 87 96 H Respiratory Rate 16 Blood Pressure 126/74 121/59 L 04/25/18 17:05 04/25/18 17:10 04/25/18 17:25 Temperature Pulse Rate 108 H 103 H 101 H Respiratory Rate Blood Pressure 98/75 L 04/25/18 17:32 04/25/18 17:50 04/25/18 18:00 Temperature Pulse Rate 89 100 H Respiratory Rate 18 Blood Pressure 96/58 L 109/57 L 04/25/18 18:01 04/25/18 18:10 04/25/18 18:25 Temperature Pulse Rate 90 93 H 91 H Respiratory Rate Blood Pressure 115/77 116/71 04/25/18 18:40 04/25/18 19:25 04/25/18 19:40 Temperature Pulse Rate 94 H 95 H 90 Respiratory Rate Blood Pressure 122/69 113/67 131/94 H 04/25/18 20:31 04/25/18 20:45 04/25/18 21:11 Temperature 98.6 F Pulse Rate 103 H 127 H Respiratory Rate 20 Blood Pressure 129/69 98/77 L 04/25/18 22:00 04/25/18 22:16 04/25/18 22:39 Temperature Pulse Rate 104 H 116 H 111 H Respiratory Rate 18 20 Blood Pressure 90/59 L 126/83 129/86 04/25/18 22:46 04/25/18 23:00 04/25/18 23:01 Temperature Pulse Rate 98 H 107 H Respiratory Rate 20 Blood Pressure 143/80 H 04/25/18 23:10 04/25/18 23:16 Temperature Pulse Rate Respiratory Rate 18 Blood Pressure 157/89 H Objective: Pelvic Exam: Cervix: midposition Dilatation: 6 Effacement: 80% Station: -3 Presentation: [-] Membranes: ruptured Uterine Contractions: q2-3 minutes on tocometer FHT's: Category: I Baseline: 150s Reactive: +accels Variability: mod Decels: none noted Assessment and Plan - Diagnosis (1) SROM (spontaneous rupture of membranes) Code(s): J45.909 - Unspecified asthma, uncomplicated Status: Acute Plan: Very pleasant 22-year-old G1 at 39/6 presented with gush of clear fluid earlier today. Amnisure positive on admission. -Cervix 6/80/-3 -Category 1 tracing -Bedside ultrasound confirmed cephalic presentation -Continue augmentation of labor with Pitocin per protocol -GBS negative -Epidural in place -Will recheck cervical exam within 2 hours and determine if to continue labor vs consideration to proceed with cesarian at that time [facility] OB Hospitalist - Attending Attestation Patient was seen and examined, has had a protracted labor course but with reassuring heart tones at this time and patient desires additional time to attempt a vaginal delivery. Discussed that a may be indicated if she fails to progress further. SMS
[2018-04-26] MEDS ORDERED: Acetaminophen 325 MG Tablet PO PRN ×2 (01:22→04:27)
[2018-04-26] MEDS ORDERED: ceFAZolin Inj 3,000 MG in Sodium Chlor 0.9% Inj 100 ML IV.SIG SCH (01:58)
[2018-04-26] MEDS ORDERED: Citric Acid/Sodium Citrate Liq 30 ML UDC PO SCH (02:00)
[2018-04-26] MEDS ORDERED: Morphine Sulfate PF Inj 5 MG/10 ML Ampul ONE (02:35)
--- NOTE | 2018-04-26 02:39 | P.OBLABOR ---
Subjective Interval history: Patient was seen and examined an hour prior at [facility]. 01:[address] Petty. Cervical exam remaining unchanged at 6/80/-3. Discussed again with patient r/b/ a of proceeding with a cesarian section. Patient discussed with family and agreed to proceed with a . All questions were answered. Objective Vital Signs: Vital Signs - 8 hr 04/25/18 18:40 04/25/18 19:25 04/25/18 19:40 Temperature Pulse Rate 94 H 95 H 90 Respiratory Rate Blood Pressure 122/69 113/67 131/94 H 04/25/18 20:31 04/25/18 20:45 04/25/18 21:11 Temperature 98.6 F Pulse Rate 103 H 127 H Respiratory Rate 20 Blood Pressure 129/69 98/77 L 04/25/18 22:00 04/25/18 22:16 04/25/18 22:39 Temperature Pulse Rate 104 H 116 H 111 H Respiratory Rate 18 20 Blood Pressure 90/59 L 126/83 129/86 04/25/18 22:46 04/25/18 23:00 04/25/18 23:01 Temperature Pulse Rate 98 H 107 H Respiratory Rate 20 Blood Pressure 143/80 H 04/25/18 23:10 04/25/18 23:15 04/25/18 23:16 Temperature 99.8 F H Pulse Rate Respiratory Rate 18 Blood Pressure 157/89 H 04/25/18 23:45 04/26/18 00:00 04/26/18 00:07 Temperature Pulse Rate 119 H 122 H Respiratory Rate 20 Blood Pressure 122/68 132/98 H 04/26/18 00:20 04/26/18 00:31 04/26/18 00:46 Temperature Pulse Rate 102 H 111 H 102 H Respiratory Rate 18 Blood Pressure 136/69 127/59 L 132/69 04/26/18 00:54 04/26/18 01:15 04/26/18 02:00 Temperature Pulse Rate 113 H 113 H Respiratory Rate 18 20 18 Blood Pressure 131/74 157/88 H 04/26/18 02:14 04/26/18 02:15 Temperature Pulse Rate 117 H Respiratory Rate 18 Blood Pressure 143/91 H Objective: Pelvic Exam: Cervix: midposition Dilatation: 6 Effacement: 80% Station: -3 Presentation: [-] Membranes: ruptured Uterine Contractions: q2-3 minutes on tocometer FHT's: Category: I Baseline: 150s Reactive: +accels Variability: mod Decels: none noted Assessment and Plan - Diagnosis (1) SROM (spontaneous rupture of membranes) Code(s): J45.909 - Unspecified asthma, uncomplicated Status: Acute Plan: Very pleasant 22-year-old G1 now at 40/0 weeks gestation presented yesterday with gush of clear fluid; Amnisure positive on admission. -Cervix remaining 6/80/-3 -Category 1 tracing -Bedside ultrasound confirmed cephalic presentation -GBS negative -After discussion with patient as noted above, will proceed with cesarian section secondary to failure to progress - Attending Attestation Patient was seen and examined, no further cervical dilation. Again discussed delivery by for labor arrest. After discussion with her family, she decided to proceed. Risks, benefits, and alternatives discussed and documented. SMS
[2018-04-26] MEDS ORDERED: fentaNYL Citrate Inj 100 MCG/2 ML Ampul ONE ×2 (02:46→03:26)
[2018-04-26 03:29] LABS: Cord Arterial Blood HCO3 22.4
[2018-04-26] MEDS ORDERED: Oxytocin 30 Units/500ml Premix 30 UNITS/500 ML BAG IV.SIG ONE (04:27)
[2018-04-26] MEDS ORDERED: Zolpidem Tartrate 5 MG Tablet PO PRN (04:27)
[2018-04-26] MEDS ORDERED: Senna/Docusate Sodium 8.6/50 MG Tablet PO PRN (04:27)
[2018-04-26] MEDS ORDERED: Simethicone 80 MG Chew Tablet PO PRN (04:27)
--- NOTE | 2018-04-26 08:29 | P.PNOB ---
Objective Vital Signs/I&O: Vital Signs 04/25/18 08:31 04/25/18 09:05 04/25/18 09:32 Temperature Pulse Rate 83 72 72 Respiratory Rate 20 Blood Pressure 120/77 117/77 129/77 04/25/18 10:01 04/25/18 10:59 04/25/18 11:02 Temperature 98.0 F Pulse Rate 80 86 Respiratory Rate 20 Blood Pressure 146/83 H 144/83 H 04/25/18 12:00 04/25/18 12:01 04/25/18 12:35 Temperature Pulse Rate 88 88 121 H Respiratory Rate 20 Blood Pressure 141/89 H 141/89 H 186/131 H 04/25/18 13:00 04/25/18 13:01 04/25/18 13:32 Temperature 98.2 F Pulse Rate 85 85 94 H Respiratory Rate 18 Blood Pressure 127/78 127/78 169/74 H 04/25/18 14:00 04/25/18 14:30 04/25/18 14:41 Temperature 97.7 F Pulse Rate 88 109 H Respiratory Rate 20 Blood Pressure 100/56 L 137/68 04/25/18 14:51 04/25/18 14:56 04/25/18 14:59 Temperature Pulse Rate 92 H 91 H 113 H Respiratory Rate 18 Blood Pressure 124/66 118/71 115/76 04/25/18 15:25 04/25/18 15:40 04/25/18 15:55 Temperature Pulse Rate 105 H 93 H 87 Respiratory Rate Blood Pressure 114/57 L 111/73 127/77 04/25/18 16:00 04/25/18 16:05 04/25/18 16:10 Temperature 98.1 F Pulse Rate 91 H 86 Respiratory Rate 16 Blood Pressure 122/74 04/25/18 16:25 04/25/18 16:52 04/25/18 17:01 Temperature 98.4 F Pulse Rate 87 96 H Respiratory Rate 16 Blood Pressure 126/74 121/59 L 04/25/18 17:05 04/25/18 17:10 04/25/18 17:25 Temperature Pulse Rate 108 H 103 H 101 H Respiratory Rate Blood Pressure 98/75 L 04/25/18 17:32 04/25/18 17:50 04/25/18 18:00 Temperature Pulse Rate 89 100 H Respiratory Rate 18 Blood Pressure 96/58 L 109/57 L 08/01/18 18:01 04/25/18 18:10 04/25/18 18:25 Temperature Pulse Rate 90 93 H 91 H Respiratory Rate Blood Pressure 115/77 116/71 04/25/18 18:40 04/25/18 19:25 04/25/18 19:40 Temperature Pulse Rate 94 H 95 H 90 Respiratory Rate Blood Pressure 122/69 113/67 131/94 H 04/25/18 20:31 04/25/18 20:45 04/25/18 21:11 Temperature 98.6 F Pulse Rate 103 H 127 H Respiratory Rate 20 Blood Pressure 129/69 98/77 L 04/25/18 22:00 04/25/18 22:16 04/25/18 22:39 Temperature Pulse Rate 104 H 116 H 111 H Respiratory Rate 18 20 Blood Pressure 90/59 L 126/83 129/86 04/25/18 22:46 04/25/18 23:00 04/25/18 23:01 Temperature Pulse Rate 98 H 107 H Respiratory Rate 20 Blood Pressure 143/80 H 04/25/18 23:10 04/25/18 23:15 04/25/18 23:16 Temperature 99.8 F H Pulse Rate Respiratory Rate 18 Blood Pressure 157/89 H 04/25/18 23:45 04/26/18 00:00 04/26/18 00:07 Temperature Pulse Rate 119 H 122 H Respiratory Rate 20 Blood Pressure 122/68 132/98 H 04/26/18 00:20 04/26/18 00:31 04/26/18 00:46 Temperature Pulse Rate 102 H 111 H 102 H Respiratory Rate 18 Blood Pressure 136/69 127/59 L 132/69 04/26/18 00:54 04/26/18 01:15 04/26/18 02:00 Temperature Pulse Rate 113 H 113 H Respiratory Rate 18 20 18 Blood Pressure 131/74 157/88 H 04/26/18 02:14 04/26/18 02:15 04/26/18 04:35 Temperature 100.1 F H Pulse Rate 117 H 98 H Respiratory Rate 18 20 Blood Pressure 143/91 H 119/65 04/26/18 04:39 04/26/18 04:47 04/26/18 05:00 Temperature Pulse Rate 95 H 97 H 86 Respiratory Rate 18 18 20 Blood Pressure 126/64 117/67 109/56 L 04/26/18 05:30 04/26/18 08:00 Temperature 98.9 F 99.8 F H Pulse Rate 80 87 Respiratory Rate 17 18 Blood Pressure 133/87 129/79 Intake & Output 04/25/18 04/26/18 04/26/18 18:59 06:59 18:59 Intake Total 1999 Balance 1999 Weight 228 kg Intake: IV 1999 LR 1000 mL Inj 1,000 ML @ 125 1999 mls/hr IV.CONT .Q8H [facility] Rx#: [id number] Result Diagrams: 04/25/18 07:43 Objective Remarks: GENERAL: Well-nourished, well-developed patient. CARDIOVASCULAR: Regular rate and rhythm without murmurs, gallops, or rubs. RESPIRATORY: Breath sounds equal bilaterally. No accessory muscle use. ABDOMEN/GI: Abdomen soft, non-tender. Fundus: Firm, non-tender at umbilicus. GENITOURINARY: Light to moderate bleeding. EXTREMITIES: No cyanosis or edema, non-tender, without signs of DVT. Medications and IVs: Active Medications Acetaminophen (Tylenol) 650 mg PO Q6H PRN PRN Reason: PAIN SCALE 1 TO 2 Citric Acid/Sodium Citrate (Sodium Citrate/Citric Acid Liq) 30 ml PO [facility] [employer] Stop: 04/29/18 07:59 Citric Acid/Sodium Citrate (Sodium Citrate/Citric Acid Liq) 30 ml PO [facility] [employer] Stop: 04/30/18 01:59 Diphtheria/Pertussis/Tetanus Vacc (Boostrix Vaccine Inj) 0.5 ml IM .ONCE ONE Stop: 04/27/18 16:01 Ephedrine Sulfate (Ephedrine/Ns Syringe) 10 mg IV.PUSH UNSCH PRN PRN Reason: SEE LABEL COMMENTS Stop: 04/26/18 16:39 Lactated Ringer's (Lr 1000 Ml Inj) 1,000 mls @ 125 mls/hr IV.CONT .Q8H [facility] Last Admin: 04/25/18 14:43 Dose: 125 mls/hr Lactated Ringer's (Lr 1000 Ml Inj) 1,000 mls @ 3,000 mls/hr IV.SIG UNSCH PRN PRN Reason: compromise or epidural Last Admin: 04/25/18 14:15 Dose: 3,000 mls/hr Sodium Chloride (Ns Inj) 500 mls @ 1,000 mls/hr IV.SIG UNSCH PRN PRN Reason: SEE LABEL COMMENTS Sodium Chloride (Ns Inj) 1,000 mls @ 100 mls/hr IV.CONT .Q10H PRN PRN Reason: SEE LABEL COMMENTS Oxytocin (Pitocin 30 Units/Ns 500 Ml Premix) 30 units in 500 mls @ 2 mls/hr IV.SIG TITRATE PRN; Protocol PRN Reason: For induction of labor Last Admin: 04/25/18 08:18 Dose: 2 milliunit/min, 2 mls/hr Cefazolin Sodium 3,000 mg/ (Sodium Chloride) 130 mls @ 200 mls/hr IV.SIG [facility] Lactated Ringer's (Lr 1000 Ml Inj) 1,000 mls @ 150 mls/hr IV.CONT .Q6H40M [facility] Lactated Ringer's (Lr 1000 Ml Inj) 1,000 mls @ 100 mls/hr IV.CONT .Q10H [facility] Stop: 04/27/18 05:27 Oxytocin (Pitocin 30 Units/Ns 500 Ml Premix) 30 units in 500 mls @ 100 mls/hr IV.SIG ONCE ONE Stop: 04/26/18 09:26 Oxytocin (Pitocin 30 Units/Ns 500 Ml Premix) 30 units in 500 mls @ 100 mls/hr IV.SIG PRN PRN PRN Reason: Heavy bleeding Stop: 04/27/18 09:27 Ibuprofen (Motrin) 600 mg PO Q6HR PRN PRN Reason: cramping Lidocaine HCl (Xylocaine 1% Inj) 0.1 ml I-DERMAL PRN PRN PRN Reason: For IV start Stop: 04/28/18 07:45 Lidocaine HCl (Xylocaine 1% Inj) 10 ml INFILTRATN PRN PRN PRN Reason: For episiotomy repair Stop: 04/27/18 07:45 Measles/Mumps/Rubella Vaccine Live (M-M-R Ii Vaccine Inj) 0.5 ml SQ .ONCE ONE Stop: 04/27/18 16:01 Mineral Oil (Muri-Lube Oil) 10 ml TOPICAL PRN PRN PRN Reason: PRN perineal massage Miscellaneous Information (Misc Information) 1 each OTHER UNSCH PRN PRN Reason: SEE LABEL COMMENTS Stop: 04/26/18 16:39 Miscellaneous Information (Misc Information) 1 each OTHER UNSCH PRN PRN Reason: SEE LABEL COMMENTS Stop: 04/26/18 16:39 Naloxone HCl (Narcan Inj) 0.1 mg IV.PUSH Q2M PRN PRN Reason: for opiate reversal Ondansetron HCl (Zofran Inj) 4 mg IV.PUSH Q6H PRN PRN Reason: NAUSEA OR VOMITING Oxycodone/Acetaminophen (Percocet 5/325 Mg) 1 tab PO Q4H PRN PRN Reason: PAIN SCALE 3 TO 5 Oxycodone/Acetaminophen (Percocet 5/325 Mg) 2 tab PO Q4H PRN PRN Reason: PAIN SCALE 6 TO 10 Senna/Docusate Sodium (Michela-Colace) 2 tab PO Q12H PRN PRN Reason: CONSTIPATION Simethicone (Mylicon Chew) 80 mg PO QID PRN PRN Reason: FLATULENCE Sodium Chloride (Ns Flush) 2 ml IV.FLUSH BID CEE Sodium Chloride (Ns Flush) 2 ml IV.FLUSH PRN PRN PRN Reason: FLUSH AFTER USING IV ACCESS Zolpidem Tartrate (Ambien) 5 mg PO HS PRN PRN Reason: INSOMNIA Assessment and Plan - Diagnosis (1) SROM (spontaneous rupture of membranes) Code(s): J45.909 - Unspecified asthma, uncomplicated Status: Acute Plan: Very pleasant 22-year-old G1 now at 40/0 weeks gestation presented yesterday with gush of clear fluid; Amnisure positive on admission. -Cervix remaining /-3 -Category 1 tracing -Bedside ultrasound confirmed cephalic presentation -GBS negative -After discussion with patient as noted above, will proceed with cesarian section secondary to failure to progress
--- NOTE | 2018-04-26 08:40 | P.PNOB ---
Subjective Post op day: 0 Interval history: Patient seen and examined this morning. Maternal temperature of 100.1 noted at 04:35; VS otherwise stable. Postoperative day #0. Endorses pain, about 4/10 currently. Denies drainage or bleeding from incision site. Denies dysuria. No breast tenderness. She is feeding the baby via formula at this time. Reports she has an appetite and is looking forward to breakfast. No nausea or vomiting. No flatus. Not yet ambulating well. Denies subjective fevers or chills, calf pain, chest pain, shortness of breath, cough. She otherwise has no other complaints or concerns this morning. Objective Vital Signs/I&O: Vital Signs 04/25/18 09:05 04/25/18 09:32 04/25/18 10:01 Temperature Pulse Rate 72 72 80 Respiratory Rate 20 Blood Pressure 117/77 129/77 146/83 H 04/25/18 10:59 04/25/18 11:02 04/25/18 12:00 Temperature 98.0 F Pulse Rate 86 88 Respiratory Rate 20 20 Blood Pressure 144/83 H 141/89 H 04/25/18 12:01 04/25/18 12:35 04/25/18 13:00 Temperature 98.2 F Pulse Rate 88 121 H 85 Respiratory Rate 18 Blood Pressure 141/89 H 186/131 H 127/78 04/25/18 13:01 04/25/18 13:32 04/25/18 14:00 Temperature 97.7 F Pulse Rate 85 94 H Respiratory Rate 20 Blood Pressure 127/78 169/74 H 04/25/18 14:30 04/25/18 14:41 04/25/18 14:51 Temperature Pulse Rate 88 109 H 92 H Respiratory Rate Blood Pressure 100/56 L 137/68 124/66 04/25/18 14:56 04/25/18 14:59 04/25/18 15:25 Temperature Pulse Rate 91 H 113 H 105 H Respiratory Rate 18 Blood Pressure 118/71 115/76 114/57 L 04/25/18 15:40 04/25/18 15:55 04/25/18 16:00 Temperature 98.1 F Pulse Rate 93 H 87 Respiratory Rate 16 Blood Pressure 111/73 127/77 04/25/18 16:05 04/25/18 16:10 04/25/18 16:25 Temperature Pulse Rate 91 H 86 87 Respiratory Rate Blood Pressure 122/74 126/74 04/25/18 16:52 04/25/18 17:01 04/25/18 17:05 Temperature 98.4 F Pulse Rate 96 H 108 H Respiratory Rate 16 Blood Pressure 121/59 L 04/25/18 17:10 04/25/18 17:25 04/25/18 17:32 Temperature Pulse Rate 103 H 101 H 89 Respiratory Rate Blood Pressure 98/75 L 96/58 L 04/25/18 17:50 04/25/18 18:00 04/25/18 18:01 Temperature Pulse Rate 100 H 90 Respiratory Rate 18 Blood Pressure 109/57 L 115/77 04/25/18 18:10 04/25/18 18:25 04/25/18 18:40 Temperature Pulse Rate 93 H 91 H 94 H Respiratory Rate Blood Pressure 116/71 122/69 04/25/18 19:25 04/25/18 19:40 04/25/18 20:31 Temperature Pulse Rate 95 H 90 Respiratory Rate Blood Pressure 113/67 131/94 H 129/69 04/25/18 20:45 04/25/18 21:11 04/25/18 22:00 Temperature 98.6 F Pulse Rate 103 H 127 H 104 H Respiratory Rate 20 Blood Pressure 98/77 L 90/59 L 04/25/18 22:16 04/25/18 22:39 04/25/18 22:46 Temperature Pulse Rate 116 H 111 H 98 H Respiratory Rate 18 20 Blood Pressure 126/83 129/86 143/80 H 04/25/18 23:00 04/25/18 23:01 04/25/18 23:10 Temperature Pulse Rate 107 H Respiratory Rate 20 18 Blood Pressure 04/25/18 23:15 04/25/18 23:16 04/25/18 23:45 Temperature 99.8 F H Pulse Rate 119 H Respiratory Rate Blood Pressure 157/89 H 122/68 04/26/18 00:00 04/26/18 00:07 04/26/18 00:20 Temperature Pulse Rate 122 H 102 H Respiratory Rate 20 18 Blood Pressure 132/98 H 136/69 04/26/18 00:31 04/26/18 00:46 04/26/18 00:54 Temperature Pulse Rate 111 H 102 H Respiratory Rate 18 Blood Pressure 127/59 L 132/69 04/26/18 01:15 04/26/18 02:00 04/26/18 02:14 Temperature Pulse Rate 113 H 113 H Respiratory Rate 20 18 18 Blood Pressure 131/74 157/88 H 04/26/18 02:15 04/26/18 04:35 04/26/18 04:39 Temperature 100.1 F H Pulse Rate 117 H 98 H 95 H Respiratory Rate 20 18 Blood Pressure 143/91 H 119/65 126/64 04/26/18 04:47 04/26/18 05:00 04/26/18 05:30 Temperature 98.9 F Pulse Rate 97 H 86 80 Respiratory Rate 18 20 17 Blood Pressure 117/67 109/56 L 133/87 04/26/18 08:00 Temperature 99.8 F H Pulse Rate 87 Respiratory Rate 18 Blood Pressure 129/79 Intake & Output 04/25/18 04/26/18 04/26/18 18:59 06:59 18:59 Intake Total 1999 Balance 1999 Weight 228 kg Intake: IV 1999 LR 1000 mL Inj 1,000 ML @ 125 1999 mls/hr IV.CONT .Q8H [facility] Rx#: [id number] Result Diagrams: 04/28/18 05:50 Objective Remarks: GENERAL: Well-nourished, well-developed patient. CARDIOVASCULAR: Regular rate and rhythm without murmurs, gallops, or rubs. RESPIRATORY: Breath sounds equal bilaterally. No accessory muscle use. ABDOMEN/GI: Abdomen soft, non-tender, bowel sounds present. Incision: Clean, dry and intact. Fundus: Firm, non-tender at umbilicus. GENITOURINARY: Light to moderate bleeding. EXTREMITIES: No cyanosis or edema, non-tender, without signs of DVT. Medications and IVs: Active Medications Acetaminophen (Tylenol) 650 mg PO Q6H PRN PRN Reason: PAIN SCALE 1 TO 2 Citric Acid/Sodium Citrate (Sodium Citrate/Citric Acid Liq) 30 ml PO [employer] [facility] Stop: 04/29/18 07:59 Citric Acid/Sodium Citrate (Sodium Citrate/Citric Acid Liq) 30 ml PO [employer] [facility] Stop: 04/30/18 01:59 Diphtheria/Pertussis/Tetanus Vacc (Boostrix Vaccine Inj) 0.5 ml IM .ONCE ONE Stop: 04/27/18 16:01 Ephedrine Sulfate (Ephedrine/Ns Syringe) 10 mg IV.PUSH UNSCH PRN PRN Reason: SEE LABEL COMMENTS Stop: 04/26/18 16:39 Lactated Ringer's (Lr 1000 Ml Inj) 1,000 mls @ 125 mls/hr IV.CONT .Q8H [facility] Last Admin: 04/25/18 14:43 Dose: 125 mls/hr Lactated Ringer's (Lr 1000 Ml Inj) 1,000 mls @ 3,000 mls/hr IV.SIG UNSCH PRN PRN Reason: compromise or epidural Last Admin: 04/25/18 14:15 Dose: 3,000 mls/hr Sodium Chloride (Ns Inj) 500 mls @ 1,000 mls/hr IV.SIG UNSCH PRN PRN Reason: SEE LABEL COMMENTS Sodium Chloride (Ns Inj) 1,000 mls @ 100 mls/hr IV.CONT .Q10H PRN PRN Reason: SEE LABEL COMMENTS Oxytocin (Pitocin 30 Units/Ns 500 Ml Premix) 30 units in 500 mls @ 2 mls/hr IV.SIG TITRATE PRN; Protocol PRN Reason: For induction of labor Last Admin: 04/25/18 08:18 Dose: 2 milliunit/min, 2 mls/hr Cefazolin Sodium 3,000 mg/ (Sodium Chloride) 130 mls @ 200 mls/hr IV.SIG [employer] [facility] Lactated Ringer's (Lr 1000 Ml Inj) 1,000 mls @ 150 mls/hr IV.CONT .Q6H40M [facility] Lactated Ringer's (Lr 1000 Ml Inj) 1,000 mls @ 100 mls/hr IV.CONT .Q10H [facility] Stop: 04/27/18 05:27 Oxytocin (Pitocin 30 Units/Ns 500 Ml Premix) 30 units in 500 mls @ 100 mls/hr IV.SIG ONCE ONE Stop: 04/26/18 09:26 Oxytocin (Pitocin 30 Units/Ns 500 Ml Premix) 30 units in 500 mls @ 100 mls/hr IV.SIG PRN PRN PRN Reason: Heavy bleeding Stop: 04/27/18 09:27 Ibuprofen (Motrin) 600 mg PO Q6HR PRN PRN Reason: cramping Lidocaine HCl (Xylocaine 1% Inj) 0.1 ml I-DERMAL PRN PRN PRN Reason: For IV start Stop: 04/28/18 07:45 Lidocaine HCl (Xylocaine 1% Inj) 10 ml INFILTRATN PRN PRN PRN Reason: For episiotomy repair Stop: 04/27/18 07:45 Measles/Mumps/Rubella Vaccine Live (M-M-R Ii Vaccine Inj) 0.5 ml SQ .ONCE ONE Stop: 04/27/18 16:01 Mineral Oil (Muri-Lube Oil) 10 ml TOPICAL PRN PRN PRN Reason: PRN perineal massage Miscellaneous Information (Misc Information) 1 each OTHER UNSCH PRN PRN Reason: SEE LABEL COMMENTS Stop: 04/26/18 16:39 Miscellaneous Information (Misc Information) 1 each OTHER UNSCH PRN PRN Reason: SEE LABEL COMMENTS Stop: 04/26/18 16:39 Naloxone HCl (Narcan Inj) 0.1 mg IV.PUSH Q2M PRN PRN Reason: for opiate reversal Ondansetron HCl (Zofran Inj) 4 mg IV.PUSH Q6H PRN PRN Reason: NAUSEA OR VOMITING Oxycodone/Acetaminophen (Percocet 5/325 Mg) 1 tab PO Q4H PRN PRN Reason: PAIN SCALE 3 TO 5 Oxycodone/Acetaminophen (Percocet 5/325 Mg) 2 tab PO Q4H PRN PRN Reason: PAIN SCALE 6 TO 10 Senna/Docusate Sodium (Michela-Colace) 2 tab PO Q12H PRN PRN Reason: CONSTIPATION Simethicone (Mylicon Chew) 80 mg PO QID PRN PRN Reason: FLATULENCE Sodium Chloride (Ns Flush) 2 ml IV.FLUSH BID CEE Sodium Chloride (Ns Flush) 2 ml IV.FLUSH PRN PRN PRN Reason: FLUSH AFTER USING IV ACCESS Zolpidem Tartrate (Ambien) 5 mg PO HS PRN PRN Reason: INSOMNIA Assessment and Plan - Diagnosis (1) delivery delivered Code(s): Z98.890 - Other specified postprocedural states Status: Acute Plan: 22 year-old POD#0 s/p 2/2 FTP. 1. Postoperative Care - AFVSS, will continue to monitor closely - Incision c/d/i - Awaiting postop H&H - Percocet and Motrin prn pain - Encouraged OOB, as tolerated - Advised pelvic rest x 6 weeks - Formula-feeding at this time, considering breast feeding - Contraception: Discussed with patient this AM, still considering her options - Recommended f/u in 1 week with myself for incision check after stable for hospital discharge - Plan Discharge Planning: Anticipate discharge in 2-3 days pending stable clinical course - Attending Attestation I personally saw and evaluated patient and participate in all sawyer decision making. Continue routine and postoperative care. Wound without erythema or exudate. Wound precautions. SMS
[2018-04-26] MEDS ORDERED: Oxytocin 30 Units/500ml Premix 30 UNITS/500 ML BAG IV.SIG PRN (09:28)
--- NOTE | 2018-04-26 10:23 | MP ---
cc: Cheri Petty MD DATE OF OPERATION: PREOPERATIVE DIAGNOSES: 1. Intrauterine at 40 weeks. 2. PROM (premature rupture of membranes). 3. Obesity. 4. Protracted labor/arrest of dilation. POSTOPERATIVE DIAGNOSES: 1. Intrauterine at 40 weeks. 2. PROM (premature rupture of membranes). 3. Obesity. 4. Protracted labor/arrest of dilation. PROCEDURE PERFORMED: Primary low transverse section with 2-layer closure and no extensions via Pfannenstiel skin incision. DESCRIPTION OF FINDINGS: Viable male in cephalic presentation with Apgars 8/9, weighing 3375 grams and cord pH 7.349. The patient had grossly normal maternal anatomy. ATTENDING SURGEON: Cheri Petty MD CASTING TESTER: Debora Kim, Talisha Hannon, Chelly Infante. SPECIMENS REMOVED: Placenta submitted to pathology. ESTIMATED BLOOD LOSS: 800 mL IV FLUIDS: 2100 mL LR. URINE OUTPUT: 400 mL, clear urine at the end of the procedure. INDICATIONS: The patient is a 22-year-old G1, P0, who presented with ruptured membranes. She was admitted for induction of labor and had a protracted labor course with arrest of dilation at 6 cm despite adequate contractions and an adequate trial of labor. The decision was made to proceed for delivery and the patient was in agreement with the plan. PROCEDURE DESCRIPTION: After obtaining informed consent with risks, benefits and alternatives discussed at length including, but not limited to pain, infection, bleeding, injury to other organs, bladder, bowels, nerves, vessels, injury to the baby, need for repeat operation, need for hysterectomy, need for blood transfusion, wound infection/ breakdown and other possible complications, the patient was taken to the operating room with reassuring heart tones. She had a Parker catheter in place and IV fluids running. Her epidural was redosed and reassuring heart tones confirmed in the operating room. A timeout procedure was performed, adequate anesthesia confirmed, and the patient was prepped and draped in normal sterile fashion. After once again confirming adequate anesthesia, a Pfannenstiel skin incision was made with the scalpel and carried down to the level of the fascia. The fascia was nicked in the midline with the scalpel and the fascial incision extended laterally with the curved Gamble scissors. The Biju clamps were applied to the superior aspect of the fascial incision, which was dissected off the underlying rectus muscles bluntly and with the curved Gamble scissors. The Biju clamps were applied to the inferior aspect of the fascial incision which was dissected off in a similar fashion. The rectus muscles were in the midline and the peritoneum entered bluntly. The peritoneal incision was extended bluntly. Despite an adequate fascial incision, the rectus muscles were very tight, so the decision was made to use the Delfino wound retractor to facilitate delivery. The Delfino wound retractor was placed without difficulty. The lower uterine segment was visualized and the vesicouterine peritoneum grasped with pickups, entered sharply with the Metzenbaum scissors. This incision was extended laterally and the bladder flap created digitally. The lower uterine segment was thinned out with the scalpel and the hysterotomy created bluntly. The hysterotomy was extended bluntly. The vertex was elevated to the level of the hysterotomy, but the tight rectus muscles prevented immediate delivery. Therefore, the rectus muscles were transected approximately 3 cm on the right and the head delivered without complication. The remainder of the was delivered without complication and stimulated on the field. The cord was doubly clamped and cut and the handed off to the waiting neonatology team. A cord segment was obtained for cord pH and cord blood obtained for the nursery. The placenta was removed manually, and the uterus exteriorized and cleared of all clots and debris. The hysterotomy site was carefully inspected and no extensions were noted. The Causey clamps were placed on the hysterotomy, which was repaired with a #1 chromic in a running locked fashion. A second layer of the same suture was used in imbricating fashion. One last suture was placed in the mid portion of the incision after which excellent hemostasis was noted. The hysterotomy was reinspected and noted to be hemostatic. The gutters were cleared of all clots and debris. The rectus muscles were examined and some bleeding was noted just inferior to the superior fascial incision. This was suture ligated with 2-0 Vicryl and excellent hemostasis noted. The rectus muscles once again inspected and noted to be hemostatic. The transected rectus muscles were reapproximated with 2-0 chromic in a figure-of- eight fashion with excellent cosmesis and hemostasis noted. After once again re-inspecting the rectus muscles, the perineum was reapproximated with 2-0 Vicryl in a running fashion. The fascia was reapproximated with #1 Vicryl in a running fashion. The subcutaneous tissue was irrigated with warm normal saline and the fascial closure noted to be intact. The subcutaneous tissue was noted to be hemostatic and reapproximated with 2-0 chromic in an interrupted fashion. The skin edges were reapproximated with 3-0 Monocryl in a subcuticular fashion. Excellent hemostasis and cosmesis were noted. All sponge, lap, and needle counts were correct x2. I performed the entire procedure. The patient was taken to the PACU in stable condition. Cheri Petty MD SMS/TL , 09:50 AM , 10:03 AM MTDD
[2018-04-26] MEDS: Ibuprofen 600 MG Tablet PO PRN ×2 (11:27→18:17)
[2018-04-26 11:48] LABS: Baso % (Auto) 0.1 % (0.0-2.0); Hematocrit 29.6 % (35.0-46.0); Hemoglobin 9.8 gm/dL (11.6-15.3); Lymph # (Auto) 1.5 th/mm3 (1.0-4.8); Lymph % (Auto) 5.4 % (9.0-44.0); Mean Corpuscular HGB Conc 33.2 % (32.0-36.0); Mean Corpuscular Hemoglobin 27.5 pg (27.0-34.0); Mean Corpuscular Volume 82.6 fL (80.0-100.0); Mean Platelet Volume 8.3 fL (7.0-11.0); Mono # (Auto) 1.4 th/mm3 (0.0-0.9); Mono % (Auto) 5.3 % (0.0-8.0); Neut # (Auto) 23.9 th/mm3 (1.8-7.7); Neut % (Auto) 89.2 % (16.0-70.0); Platelet Count 385 th/mm3 (150-450); Red Blood Count 3.58 mil/mm3 (4.00-5.30); Red Cell Distribution Width 14.1 % (11.6-17.2); White Blood Count 26.8 th/mm3 (4.0-11.0)
[2018-04-26] MEDS ORDERED: Lidocaine 2%/Epinephrine 1:200,000 PF Inj 20 ML Vial INFILTRATN ONE (12:00)
[2018-04-26] MEDS ORDERED: Phenylephrine/NS 1000 MCG/10ML Syringe IV.PUSH ONE (12:00)
[2018-04-27] MEDS: Ibuprofen 600 MG Tablet PO PRN ×4 (00:08→21:48)
--- NOTE | 2018-04-27 07:29 | P.PNOB ---
Subjective Post op day: 1 Interval history: Patient seen and examined this morning. AFVSS overnight. Postoperative day #1. Patient states her pain is currently and 8/10, has been receiving po percocet and motrin and states this has been helping. Denies drainage or bleeding from incision site. Endorses decreased lochia. Denies dysuria. No breast tenderness. She is feeding the baby via formula. Appetite good. No nausea or vomiting. Endorses flatus. Ambulating well. Denies fevers, CP, calf pain, shortness of breath, or cough. She otherwise has no other complaints this morning. Objective Vital Signs/I&O: Vital Signs 04/26/18 08:00 04/26/18 11:42 04/26/18 20:00 Temperature 99.8 F H 97.9 F 98.1 F Pulse Rate 87 80 71 Respiratory Rate 18 16 18 Blood Pressure 129/79 118/67 115/70 04/27/18 00:00 Temperature 98.5 F Pulse Rate 89 Respiratory Rate 18 Blood Pressure 116/71 Result Diagrams: 04/26/18 11:03 Objective Remarks: GENERAL: Well-nourished, well-developed patient. CARDIOVASCULAR: Regular rate and rhythm without murmurs, gallops, or rubs. RESPIRATORY: Breath sounds equal bilaterally. No accessory muscle use. ABDOMEN/GI: Abdomen soft, non-tender, bowel sounds present. Incision: Clean, dry and intact. Fundus: Firm, non-tender at umbilicus. GENITOURINARY: Light to moderate bleeding. EXTREMITIES: No cyanosis or edema, non-tender, without signs of DVT. Medications and IVs: Active Medications Acetaminophen (Tylenol) 650 mg PO Q6H PRN PRN Reason: PAIN SCALE 1 TO 2 Citric Acid/Sodium Citrate (Sodium Citrate/Citric Acid Liq) 30 ml PO [employer] [facility] Stop: 04/29/18 07:59 Citric Acid/Sodium Citrate (Sodium Citrate/Citric Acid Liq) 30 ml PO [employer] [facility] Stop: 04/30/18 01:59 Diphtheria/Pertussis/Tetanus Vacc (Boostrix Vaccine Inj) 0.5 ml IM .ONCE ONE Stop: 04/27/18 16:01 Lactated Ringer's (Lr 1000 Ml Inj) 1,000 mls @ 125 mls/hr IV.CONT .Q8H [facility] Last Admin: 04/26/18 11:06 Dose: Not Given Lactated Ringer's (Lr 1000 Ml Inj) 1,000 mls @ 3,000 mls/hr IV.SIG UNSCH PRN PRN Reason: compromise or epidural Last Admin: 04/25/18 14:15 Dose: 3,000 mls/hr Sodium Chloride (Ns Inj) 500 mls @ 1,000 mls/hr IV.SIG UNSCH PRN PRN Reason: SEE LABEL COMMENTS Sodium Chloride (Ns Inj) 1,000 mls @ 100 mls/hr IV.CONT .Q10H PRN PRN Reason: SEE LABEL COMMENTS Oxytocin (Pitocin 30 Units/Ns 500 Ml Premix) 30 units in 500 mls @ 2 mls/hr IV.SIG TITRATE PRN; Protocol PRN Reason: For induction of labor Last Admin: 04/25/18 08:18 Dose: 2 milliunit/min, 2 mls/hr Cefazolin Sodium 3,000 mg/ (Sodium Chloride) 130 mls @ 200 mls/hr IV.SIG [employer] CEE Lactated Ringer's (Lr 1000 Ml Inj) 1,000 mls @ 150 mls/hr IV.CONT .Q6H40M CEE Oxytocin (Pitocin 30 Units/Ns 500 Ml Premix) 30 units in 500 mls @ 100 mls/hr IV.SIG PRN PRN PRN Reason: Heavy bleeding Stop: 04/27/18 09:27 Ibuprofen (Motrin) 600 mg PO Q6HR PRN PRN Reason: cramping Last Admin: 04/27/18 06:49 Dose: 600 mg Lidocaine HCl (Xylocaine 1% Inj) 0.1 ml I-DERMAL PRN PRN PRN Reason: For IV start Stop: 04/28/18 07:45 Lidocaine HCl (Xylocaine 1% Inj) 10 ml INFILTRATN PRN PRN PRN Reason: For episiotomy repair Stop: 04/27/18 07:45 Measles/Mumps/Rubella Vaccine Live (M-M-R Ii Vaccine Inj) 0.5 ml SQ .ONCE ONE Stop: 04/27/18 16:01 Mineral Oil (Muri-Lube Oil) 10 ml TOPICAL PRN PRN PRN Reason: PRN perineal massage Naloxone HCl (Narcan Inj) 0.1 mg IV.PUSH Q2M PRN PRN Reason: for opiate reversal Ondansetron HCl (Zofran Inj) 4 mg IV.PUSH Q6H PRN PRN Reason: NAUSEA OR VOMITING Oxycodone/Acetaminophen (Percocet 5/325 Mg) 1 tab PO Q4H PRN PRN Reason: PAIN SCALE 3 TO 5 Last Admin: 04/27/18 00:08 Dose: 1 tab Oxycodone/Acetaminophen (Percocet 5/325 Mg) 2 tab PO Q4H PRN PRN Reason: PAIN SCALE 6 TO 10 Last Admin: 04/27/18 06:49 Dose: 2 tab Senna/Docusate Sodium (Michela-Colace) 2 tab PO Q12H PRN PRN Reason: CONSTIPATION Simethicone (Mylicon Chew) 80 mg PO QID PRN PRN Reason: FLATULENCE Sodium Chloride (Ns Flush) 2 ml IV.FLUSH BID CEE Sodium Chloride (Ns Flush) 2 ml IV.FLUSH PRN PRN PRN Reason: FLUSH AFTER USING IV ACCESS Zolpidem Tartrate (Ambien) 5 mg PO HS PRN PRN Reason: INSOMNIA Assessment and Plan - Diagnosis (1) delivery delivered Code(s): Z98.890 - Other specified postprocedural states Status: Acute Plan: 22 year-old POD#1 s/p 2/2 FTP. 1. Postoperative Care - AFVSS - Incision c/d/i - Postop H&H 9.8/29.6 from 11.7/33.0, will continue to monitor - Percocet and Motrin prn pain - Encouraged OOB, as tolerated - Advised pelvic rest x 6 weeks - Formula-feeding at this time, considering breast feeding - Contraception: Discussed with patient this AM, still considering her options - Recommended f/u in 1 week with myself for incision check after stable for hospital discharge - Plan Discharge Planning: Anticipate discharge in 2-3 days pending stable clinical course
[2018-04-27 11:26] LABS: Baso # (Auto) 0.1 th/mm3 (0.0-0.2); Baso % (Auto) 0.5 % (0.0-2.0); Eos # (Auto) 0.1 th/mm3 (0.0-0.4); Eos % (Auto) 0.7 % (0.0-4.0); Hemoglobin 8.3 gm/dL (11.6-15.3); Lymph # (Auto) 3.6 th/mm3 (1.0-4.8); Lymph % (Auto) 21.1 % (9.0-44.0); Mean Corpuscular HGB Conc 33.3 % (32.0-36.0); Mean Corpuscular Hemoglobin 27.7 pg (27.0-34.0); Mean Corpuscular Volume 83.2 fL (80.0-100.0); Mono # (Auto) 1.2 th/mm3 (0.0-0.9); Neut # (Auto) 12.1 th/mm3 (1.8-7.7); Neut % (Auto) 70.7 % (16.0-70.0); Platelet Count 330 th/mm3 (150-450); Red Cell Distribution Width 14.4 % (11.6-17.2)
[2018-04-27] MEDS: Ferrous Sulfate 325 MG Tablet PO SCH ×2 (11:47→21:47)
[2018-04-27] MEDS: Senna/Docusate Sodium 8.6/50 MG Tablet PO SCH (11:47)
[2018-04-27] MEDS ORDERED: Diphtheria/Tetanus/Pertussis Vaccine Inj 0.5 ML Syringe IM ONE (16:00)
[2018-04-27] MEDS ORDERED: Measles/Mumps/Rubella Vaccine Inj 0.5 ML Vial SQ ONE (16:00)
[2018-04-28] MEDS: Ibuprofen 600 MG Tablet PO PRN ×3 (03:46→23:54)
[2018-04-28 06:14] LABS: Baso # (Auto) 0.1 th/mm3 (0.0-0.2); Baso % (Auto) 0.5 % (0.0-2.0); Eos # (Auto) 0.2 th/mm3 (0.0-0.4); Eos % (Auto) 1.2 % (0.0-4.0); Hematocrit 23.3 % (35.0-46.0); Hemoglobin 7.6 gm/dL (11.6-15.3); Lymph % (Auto) 21.9 % (9.0-44.0); Mean Corpuscular HGB Conc 32.6 % (32.0-36.0); Mean Corpuscular Hemoglobin 26.9 pg (27.0-34.0); Mean Corpuscular Volume 82.8 fL (80.0-100.0); Mean Platelet Volume 7.9 fL (7.0-11.0); Mono % (Auto) 7.4 % (0.0-8.0); Neut # (Auto) 9.3 th/mm3 (1.8-7.7); Platelet Count 324 th/mm3 (150-450); Red Blood Count 2.82 mil/mm3 (4.00-5.30); Red Cell Distribution Width 13.7 % (11.6-17.2); White Blood Count 13.5 th/mm3 (4.0-11.0)
--- NOTE | 2018-04-28 07:58 | P.PNOB ---
Subjective Post op day: 2 Interval history: Patient seen and examined this morning. AFVSS overnight. Postoperative day #2. Patient states her pain is currently a 6-7/10, overall stable. Controlled with her current pain regimen. Denies bleeding or drainage from her incision site. Denies heavy vaginal bleeding. Decreased lochia. Denies dysuria. No breast tenderness. She is feeding the baby via formula. Appetite good. No nausea or vomiting. Endorses flatus. Ambulating without reported dyspnea, dizziness, or lightheadedness. Denies fevers, CP, calf pain, shortness of breath, or cough. Objective Vital Signs/I&O: Vital Signs 04/27/18 08:00 04/27/18 19:54 Temperature 97.8 F 98.3 F Pulse Rate 88 93 H Respiratory Rate 20 19 Blood Pressure 115/62 122/72 Result Diagrams: 04/28/18 05:50 Objective Remarks: GENERAL: Well-nourished, well-developed patient. CARDIOVASCULAR: Regular rate and rhythm without murmurs, gallops, or rubs. RESPIRATORY: Breath sounds equal bilaterally. No accessory muscle use. ABDOMEN/GI: Abdomen soft, non-tender, bowel sounds present. Incision: Clean, dry and intact. Fundus: Firm, non-tender at umbilicus. GENITOURINARY: Light to moderate bleeding. EXTREMITIES: No cyanosis or edema, non-tender, without signs of DVT. Medications and IVs: Active Medications Acetaminophen (Tylenol) 650 mg PO Q6H PRN PRN Reason: PAIN SCALE 1 TO 2 Citric Acid/Sodium Citrate (Sodium Citrate/Citric Acid Liq) 30 ml PO [employer] [facility] Stop: 04/29/18 07:59 Citric Acid/Sodium Citrate (Sodium Citrate/Citric Acid Liq) 30 ml PO [employer] [facility] Stop: 04/30/18 01:59 Ferrous Sulfate (Ferosul) 325 mg PO BID [facility] Last Admin: 04/27/18 21:47 Dose: 325 mg Lactated Ringer's (Lr 1000 Ml Inj) 1,000 mls @ 125 mls/hr IV.CONT .Q8H [facility] Last Admin: 04/26/18 11:06 Dose: Not Given Lactated Ringer's (Lr 1000 Ml Inj) 1,000 mls @ 3,000 mls/hr IV.SIG UNSCH PRN PRN Reason: compromise or epidural Last Admin: 04/25/18 14:15 Dose: 3,000 mls/hr Sodium Chloride (Ns Inj) 500 mls @ 1,000 mls/hr IV.SIG UNSCH PRN PRN Reason: SEE LABEL COMMENTS Sodium Chloride (Ns Inj) 1,000 mls @ 100 mls/hr IV.CONT .Q10H PRN PRN Reason: SEE LABEL COMMENTS Oxytocin (Pitocin 30 Units/Ns 500 Ml Premix) 30 units in 500 mls @ 2 mls/hr IV.SIG TITRATE PRN; Protocol PRN Reason: For induction of labor Last Admin: 04/25/18 08:18 Dose: 2 milliunit/min, 2 mls/hr Cefazolin Sodium 3,000 mg/ (Sodium Chloride) 130 mls @ 200 mls/hr IV.SIG [employer] CEE Lactated Ringer's (Lr 1000 Ml Inj) 1,000 mls @ 150 mls/hr IV.CONT .Q6H40M CEE Ibuprofen (Motrin) 600 mg PO Q6HR PRN PRN Reason: cramping Last Admin: 04/28/18 03:46 Dose: 600 mg Mineral Oil (Muri-Lube Oil) 10 ml TOPICAL PRN PRN PRN Reason: PRN perineal massage Naloxone HCl (Narcan Inj) 0.1 mg IV.PUSH Q2M PRN PRN Reason: for opiate reversal Ondansetron HCl (Zofran Inj) 4 mg IV.PUSH Q6H PRN PRN Reason: NAUSEA OR VOMITING Oxycodone/Acetaminophen (Percocet 5/325 Mg) 1 tab PO Q4H PRN PRN Reason: PAIN SCALE 3 TO 5 Last Admin: 04/27/18 00:08 Dose: 1 tab Oxycodone/Acetaminophen (Percocet 5/325 Mg) 2 tab PO Q4H PRN PRN Reason: PAIN SCALE 6 TO 10 Last Admin: 04/28/18 03:46 Dose: 2 tab Senna/Docusate Sodium (Michela-Colace) 2 tab PO Q12H PRN PRN Reason: CONSTIPATION Last Admin: 04/27/18 21:47 Dose: 2 tab Senna/Docusate Sodium (Michela-Colace) 1 tab PO BID CEE Last Admin: 04/27/18 11:47 Dose: 1 tab Simethicone (Mylicon Chew) 80 mg PO QID PRN PRN Reason: FLATULENCE Last Admin: 04/27/18 21:47 Dose: 80 mg Sodium Chloride (Ns Flush) 2 ml IV.FLUSH BID CEE Sodium Chloride (Ns Flush) 2 ml IV.FLUSH PRN PRN PRN Reason: FLUSH AFTER USING IV ACCESS Zolpidem Tartrate (Ambien) 5 mg PO HS PRN PRN Reason: INSOMNIA Assessment and Plan - Diagnosis (1) delivery delivered Code(s): Z98.890 - Other specified postprocedural states Status: Acute Plan: 22 year-old POD#2 s/p 2/2 FTP. 1. Postoperative Care - AFVSS - Incision c/d/i - Postop H&H 9.8/29.6 from 11.7/33.0, trending to 8.3->7.6; Asymptomatic at this time, will continue to monitor. Repeat H/H tomorrow AM. If nearing 7.0 or lower will transfuse pRBCs - Continue ferrous sulfate 325 mg tid - Percocet and Motrin prn pain - Encouraged OOB, as tolerated - Advised pelvic rest x 6 weeks - Formula-feeding at this time - Contraception: Discussed with patient this AM, still considering her options - Recommended f/u in 1 week with myself for incision check after stable for hospital discharge - Plan Discharge Planning: Anticipate discharge tomorrow pending stable clinical course
[2018-04-28] MEDS: Ferrous Sulfate 325 MG Tablet PO SCH ×3 (09:05→18:42)
[2018-04-28] MEDS: Senna/Docusate Sodium 8.6/50 MG Tablet PO SCH (09:06)
--- NOTE | 2018-04-29 07:22 | P.PNOB ---
Subjective Post op day: 3 Interval history: Postoperative day number 3. AFVSS overnight. Pain controlled. Incision not draining. She is feeding the baby via [-]. Appetite good. No nausea or vomiting. [+] flatus. [+] bowel movement. Ambulating well. Denies calf pain, shortness of breath, or cough. Otherwise, she is doing well this morning and has no other complaints. Objective Vital Signs/I&O: Vital Signs 04/28/18 08:00 04/28/18 20:00 Temperature 98.0 F 98.2 F Pulse Rate 89 97 H Respiratory Rate 20 20 Blood Pressure 129/76 129/73 Result Diagrams: 04/28/18 05:50 Objective Remarks: GENERAL: Well-nourished, well-developed patient. CARDIOVASCULAR: Regular rate and rhythm without murmurs, gallops, or rubs. RESPIRATORY: Breath sounds equal bilaterally. No accessory muscle use. ABDOMEN/GI: Abdomen soft, non-tender, bowel sounds present. Incision: Clean, dry and intact. Fundus: Firm, non-tender at umbilicus. GENITOURINARY: Light to moderate bleeding. EXTREMITIES: No cyanosis or edema, non-tender, without signs of DVT. Medications and IVs: Active Medications Acetaminophen (Tylenol) 650 mg PO Q6H PRN PRN Reason: PAIN SCALE 1 TO 2 Citric Acid/Sodium Citrate (Sodium Citrate/Citric Acid Liq) 30 ml PO [employer] [facility] Stop: 04/29/18 07:59 Citric Acid/Sodium Citrate (Sodium Citrate/Citric Acid Liq) 30 ml PO [employer] [facility] Stop: 04/30/18 01:59 Ferrous Sulfate (Ferosul) 325 mg PO TID [facility] Last Admin: 04/28/18 18:42 Dose: 325 mg Lactated Ringer's (Lr 1000 Ml Inj) 1,000 mls @ 125 mls/hr IV.CONT .Q8H [facility] Last Admin: 04/26/18 11:06 Dose: Not Given Lactated Ringer's (Lr 1000 Ml Inj) 1,000 mls @ 3,000 mls/hr IV.SIG UNSCH PRN PRN Reason: compromise or epidural Last Admin: 04/25/18 14:15 Dose: 3,000 mls/hr Sodium Chloride (Ns Inj) 500 mls @ 1,000 mls/hr IV.SIG UNSCH PRN PRN Reason: SEE LABEL COMMENTS Sodium Chloride (Ns Inj) 1,000 mls @ 100 mls/hr IV.CONT .Q10H PRN PRN Reason: SEE LABEL COMMENTS Oxytocin (Pitocin 30 Units/Ns 500 Ml Premix) 30 units in 500 mls @ 2 mls/hr IV.SIG TITRATE PRN; Protocol PRN Reason: For induction of labor Last Admin: 04/25/18 08:18 Dose: 2 milliunit/min, 2 mls/hr Cefazolin Sodium 3,000 mg/ (Sodium Chloride) 130 mls @ 200 mls/hr IV.SIG [employer] CEE Lactated Ringer's (Lr 1000 Ml Inj) 1,000 mls @ 150 mls/hr IV.CONT .Q6H40M CEE Ibuprofen (Motrin) 600 mg PO Q6HR PRN PRN Reason: cramping Last Admin: 04/28/18 23:54 Dose: 600 mg Mineral Oil (Muri-Lube Oil) 10 ml TOPICAL PRN PRN PRN Reason: PRN perineal massage Naloxone HCl (Narcan Inj) 0.1 mg IV.PUSH Q2M PRN PRN Reason: for opiate reversal Ondansetron HCl (Zofran Inj) 4 mg IV.PUSH Q6H PRN PRN Reason: NAUSEA OR VOMITING Oxycodone/Acetaminophen (Percocet 5/325 Mg) 1 tab PO Q4H PRN PRN Reason: PAIN SCALE 3 TO 5 Last Admin: 04/29/18 00:02 Dose: 1 tab Oxycodone/Acetaminophen (Percocet 5/325 Mg) 2 tab PO Q4H PRN PRN Reason: PAIN SCALE 6 TO 10 Last Admin: 04/28/18 16:36 Dose: 2 tab Senna/Docusate Sodium (Michela-Colace) 2 tab PO Q12H PRN PRN Reason: CONSTIPATION Last Admin: 04/27/18 21:47 Dose: 2 tab Senna/Docusate Sodium (Michela-Colace) 1 tab PO BID CEE Last Admin: 04/28/18 09:06 Dose: 1 tab Simethicone (Mylicon Chew) 80 mg PO QID PRN PRN Reason: FLATULENCE Last Admin: 04/27/18 21:47 Dose: 80 mg Sodium Chloride (Ns Flush) 2 ml IV.FLUSH BID CEE Sodium Chloride (Ns Flush) 2 ml IV.FLUSH PRN PRN PRN Reason: FLUSH AFTER USING IV ACCESS Zolpidem Tartrate (Ambien) 5 mg PO HS PRN PRN Reason: INSOMNIA Assessment and Plan - Diagnosis (1) delivery delivered Code(s): Z98.890 - Other specified postprocedural states Status: Acute Plan: 22 year-old POD#2 s/p 2/2 FTP. 1. Postoperative Care - AFVSS - Incision c/d/i - Postop H&H 9.8/29.6 from 11.7/33.0, trending to 8.3->7.6; Asymptomatic at this time, will continue to monitor. Repeat H/H tomorrow AM. If nearing 7.0 or lower will transfuse pRBCs - Continue ferrous sulfate 325 mg tid - Percocet and Motrin prn pain - Encouraged OOB, as tolerated - Advised pelvic rest x 6 weeks - Formula-feeding at this time - Contraception: Discussed with patient this AM, still considering her options - Recommended f/u in 1 week with myself for incision check after stable for hospital discharge - Plan 22 y/o POD #3 for C/S at 40/0 weeks. Would like to go home today. Doing well, no complaints. - AFVSS - Incision c/d/i - Continue ferrous sulfate 325 mg tid - Percocet and Motrin prn pain - Encouraged OOB, as tolerated - Advised pelvic rest x 6 weeks - Formula-feeding at this time - Contraception: Discussed with patient , still considering her options - Recommended f/u in [address] Davis for incision check after stable for hospital discharge
[2018-04-29] MEDS: Ferrous Sulfate 325 MG Tablet PO SCH ×2 (08:28→13:56)
[2018-04-29] MEDS: Senna/Docusate Sodium 8.6/50 MG Tablet PO SCH ×2 (08:29→08:39)
[2018-04-29] MEDS: Ibuprofen 600 MG Tablet PO PRN (08:38)
== END 2018-04-29 15:35 | disposition home or self-care (01) ==
LOC: HOBED 06:59 → H2E 07:36 → H1EA 04-26 05:23
PROVIDERS: ADMIT Obstetrics & Gynecology Obstetrics; ATTEND Obstetrics & Gynecology Obstetrics